=== PATIENT | female | born 1975 | race African-American/Black ===

== ENCOUNTER 2017-09-21 08:47 | Emergency (ER) | payer OTHER ==
[2017-09-21] MEDS ORDERED: ONDANSETRON 4 MG/2 ML VIAL IVP STA (09:12)
[2017-09-21] MEDS ORDERED: SODIUM CHLORIDE 0.9% 1,000 ML IV STA (09:12)
[2017-09-21 09:39] LABS: Basophils % (A) 0 %; CH 30.5; Eosinophils # (A) 0.1 k/uL (0-0.7); Eosinophils % (A) 1 %; HCT 33.8 % (34.0-46.0); HDW 2.54; HGB 10.9 gm/dL (11.4-16.0); Luc # (Auto) 0.23; Luc % (Auto) 2; Lymphocytes % (A) 11 %; MCH 29.9 pg (25.0-35.0); MCHC 32.3 g/dL (31.0-37.0); MCV 92.8 fL (80.0-100.0); Mean Platelet Volume 6.7; Monocytes # (A) 0.4 k/uL (0-1.0); Monocytes % (A) 5 %; Neutrophils # (A) 7.8 k/uL (1.3-7.7); Neutrophils % (A) 81 %; RBC 3.65 m/uL (3.80-5.40); RDW 12.7 % (11.5-15.5); WBC 9.5 k/uL (3.8-10.6); WBC (Perox) 9.72
[2017-09-21 09:40] LABS: Appearance,Urine Clear (Clear); Bacteria,Urine Moderate /hpf; Bilirubin,Urine Negative (Negative); Glucose,Urine (UA) Negative (Negative); Ketones,Urine 1+ (Negative); Leukocyte Esterase,Urine Negative (Negative); Mucus,Urine Rare /hpf; Nitrite,Urine Negative (Negative); Particle Count 3321; Protein,Urine Negative (Negative); RBC,Urine 7 /hpf (0-5); Squamous Epithelial Cell,Urine 1 /hpf (0-4); UA Billing (MACRO vs. MICRO) MICRO; Urobilinogen,Urine <2.0 mg/dL (<2.0); WBC,Urine 1 /hpf (0-5)
[2017-09-21 09:48] LABS: ALT 24 U/L (9-52); AST 18 U/L (14-36); Alkaline Phosphatase 45 U/L (38-126); Amylase 73 U/L (30-110); Anion Gap 10 mmol/L; Blood Urea Nitrogen 7 mg/dL (7-17); Calcium 9.6 mg/dL (8.4-10.2); Carbon Dioxide 21 mmol/L (22-30); Chloride 107 mmol/L (98-107); Glucose 85 mg/dL (74-99); Non-African American GFR(MDRD) >60 (>60 ml/min/1.73 sqM); Potassium 4.6 mmol/L (3.5-5.1); Sodium 138 mmol/L (137-145); Total Bilirubin 0.4 mg/dL (0.2-1.3); Total Protein 7.1 g/dL (6.3-8.2)
[2017-09-21 10:18] VITALS: BP 119/65; PULSE 77; RESP 20
[2017-09-21] MEDS ORDERED: METOCLOPRAMIDE 5 MG/ML 2 ML VIAL IVP STA (10:28)
--- NOTE | 2017-09-21 10:28 | ED ---
Back Pain HPI - General Chief Complaint: Back Pain/Injury Stated Complaint: Abd Pain/Back Pain 13 wks preg Time Seen by Provider: 09/21/17 08:57 Source: patient, RN notes reviewed Mode of arrival: ambulatory Limitations: no limitations - History of Present Illness Initial Comments: This a 42-year-old female presents emergency Department chief complaint of left- sided neck pain. Patient states she woke up with a couple days ago. Patient states she did have massage the day before. Patient states her still twist or bend her neck. Patient states it's on her left side that radiates towards her left shoulder. Denies any weakness to her extremities. Patient denies any paresthesias. Patient is left-hand dominant. Denies headache, fever, chills, chest pain or shortness breath. Patient states she is currently 14 weeks states that she does have nausea vomiting throughout and which is worse today. Patient states she is prescribed Zofran by her [employer] doesn't prove this. patient states that she has no vaginal bleeding or vaginal discharge. denies any abdominal pain or cramping. - Related Data Home Medications Medication Instructions Recorded Confirmed Multivitamins, Thera [Multivitamin 1 tab PO DAILY 09/21/17 09/21/17 (formulary)] Ondansetron [Zofran ODT] 4 mg PO Q4-6H PRN 09/21/17 09/21/17 Allergies Allergy/AdvReac Type Severity Reaction Status Date / Time latex Allergy Rash/Hives Verified 09/21/17 09:18 Penicillins Allergy Swelling Verified 09/21/17 09:18 Review of Systems ROS Statement: Those systems with pertinent positive or pertinent negative responses have been documented in the HPI. ROS Other: All systems not noted in ROS Statement are negative. Past Medical History Past Medical History: No Reported History Additional Past Medical History / Comment(s): MISSED AB, CURRENTLY SPOTTING AND SOME CRAMPING History of Any Multi-Drug Resistant Organisms: None Reported Past Surgical History: Section Additional Past Surgical History / Comment(s): D&C Past Anesthesia/Blood Transfusion Reactions: No Reported Reaction Past Psychological History: No Psychological Hx Reported Smoking Status: Never smoker Past Alcohol Use History: None Reported Past Drug Use History: None Reported - Past Family History Mother Family Medical History: No Reported History General Exam Limitations: no limitations General appearance: alert, in no apparent distress Head exam: Present: atraumatic, normocephalic, normal inspection Eye exam: Present: normal appearance, PERRL, EOMI. Absent: scleral icterus, conjunctival injection, periorbital swelling ENT exam: Present: normal exam, normal oropharynx, mucous membranes moist, TM's normal bilaterally, normal external ear exam Neck exam: Present: normal inspection, tenderness (Mild tenderness to the left trapezius), full ROM (Pain with range of motion). Absent: meningismus, lymphadenopathy Respiratory exam: Present: normal lung sounds bilaterally. Absent: respiratory distress, wheezes, rales, rhonchi, stridor Cardiovascular Exam: Present: regular rate, normal rhythm, normal heart sounds. Absent: systolic murmur, diastolic murmur, rubs, gallop, clicks GI/Abdominal exam: Present: soft, normal bowel sounds. Absent: distended, tenderness, guarding, rebound, rigid Extremities exam: Present: normal inspection, full ROM, normal capillary refill. Absent: tenderness, pedal edema, joint swelling, calf tenderness Neurological exam: Present: alert, oriented X3, CN II-XII intact Skin exam: Present: warm, dry, intact, normal color. Absent: rash Course Vital Signs 09/21/17 09/21/17 08:50 10:17 Temperature 98.5 F Pulse Rate 84 77 Respiratory 16 20 Rate Blood Pressure 136/79 119/65 O2 Sat by Pulse 100 100 Oximetry Medical Decision Making - Medical Decision Making 42-year-old female presented for neck pain. Patient has trapezius muscle spasms /torticollis. Patient is advised that she can try heat and ice to take Tylenol. Patient is limited on medications secondary . Patient was informed that she did have some blood in the urine states that this is an ongoing issue and she knows of this. Patient again states that she has no vaginal bleeding. Patient is advised to follow-up with her [employer] next one to 2 days. Return parameters were discussed. - Lab Data Result diagrams: 09/21/17 09:23 09/21/17 09:23 Lab Results 09/21/17 09/21/17 09/21/17 Range/Units 09:23 09:23 09:23 WBC 9.5 (3.8-10.6) k/uL RBC 3.65 L (3.80-5.40) m/uL Hgb 10.9 L (11.4-16.0) gm/dL Hct 33.8 L (34.0-46.0) % MCV 92.8 (80.0-100.0) fL MCH 29.9 (25.0-35.0) pg MCHC 32.3 (31.0-37.0) g/dL RDW 12.7 (11.5-15.5) % Plt Count 310 (150-450) k/uL Neutrophils % 81 % Lymphocytes % 11 % Monocytes % 5 % Eosinophils % 1 % Basophils % 0 % Neutrophils # 7.8 H (1.3-7.7) k/uL Lymphocytes # 1.0 (1.0-4.8) k/uL Monocytes # 0.4 (0-1.0) k/uL Eosinophils # 0.1 (0-0.7) k/uL Basophils # 0.0 (0-0.2) k/uL Sodium 138 (137-145) mmol/L Potassium 4.6 (3.5-5.1) mmol/L Chloride 107 (98-107) mmol/L Carbon Dioxide 21 L (22-30) mmol/L Anion Gap 10 mmol/L BUN 7 (7-17) mg/dL Creatinine 0.60 (0.52-1.04) mg/dL Est GFR (MDRD) Af Amer >60 (>60 ml/min/1.73 sqM) Est GFR (MDRD) Non-Af >60 (>60 ml/min/1.73 sqM) Glucose 85 (74-99) mg/dL Calcium 9.6 (8.4-10.2) mg/dL Total Bilirubin 0.4 (0.2-1.3) mg/dL AST 18 (14-36) U/L ALT 24 (9-52) U/L Alkaline Phosphatase 45 (38-126) U/L Total Protein 7.1 (6.3-8.2) g/dL Albumin 3.8 (3.5-5.0) g/dL Amylase 73 (30-110) U/L Lipase 56 (23-300) U/L Urine Color Light Yellow Urine Appearance Clear (Clear) Urine pH 7.0 (5.0-8.0) Ur Specific [place] 1.010 (1.001-1.035) Urine Protein Negative (Negative) Urine Glucose (UA) Negative (Negative) Urine Ketones 1+ H (Negative) Urine Blood Trace H (Negative) Urine Nitrite Negative (Negative) Urine Bilirubin Negative (Negative) Urine Urobilinogen <2.0 (<2.0) mg/dL Ur Leukocyte Esterase Negative (Negative) Urine RBC 7 H (0-5) /hpf Urine WBC 1 (0-5) /hpf Ur Squamous Epith Cells 1 (0-4) /hpf Urine Bacteria Moderate H (None) /hpf Urine Mucus Rare H (None) /hpf Disposition Clinical Impression: Trapezius muscle spasm, Nausea & vomiting Disposition: HOME SELF-CARE Condition: Stable Instructions: Spasmodic Torticollis (ED), Muscle Spasm (ED) Additional Instructions: Please return to the Emergency Department if symptoms worsen or any other concerns. Referrals: None,Stated [Primary Care Provider] - 1-2 days Time of Disposition: 10:28
[2017-09-21 10:37] VITALS: TEMP 98.2
== END 2017-09-21 10:37 | disposition home or self-care (01) ==
LOC: EC 08:47
DX: O99.89 Other specified diseases and conditions complicating pregnancy, childbirth and the puerperium (principal); M62.838 Other muscle spasm; O21.9 Vomiting of pregnancy, unspecified; Z98.890 Other specified postprocedural states; Z88.0 Allergy status to penicillin; Z91.040 Latex allergy status; Z3A.14 14 weeks gestation of pregnancy; Z79.899 Other long term (current) drug therapy
CPT/HCPCS: 36415; 80053; 82150; 83690; 85025; 81001; 99283; 96374; 96375; 96361; J2765; J2405

== ENCOUNTER 2017-11-25 14:51 | Outpatient (CLI) | payer OTHER ==
[2017-11-25 15:18] VITALS: BP 121/61; PULSE 98; RESP 18; TEMP 98.2
[2017-11-25 15:29] LABS: Appearance,Urine Clear (Clear); Bilirubin,Urine Negative (Negative); Blood,Urine Negative (Negative); Color,Urine Light Yellow; Glucose,Urine (UA) Negative (Negative); Ketones,Urine Negative (Negative); Leukocyte Esterase,Urine Negative (Negative); PH, Urine 6.5 (5.0-8.0); Protein,Urine Negative (Negative); Specific Gravity,Urine 1.006 (1.001-1.035); Urobilinogen,Urine <2.0 mg/dL (<2.0)
--- NOTE | 2018-01-04 08:24 | P.MSEPDOC ---
Presenting Problems - Arrival Data Date of Arrival on Unit: 11/25/17 Time of Arrival on Unit: 14:50 Mode of Transport: Ambulatory - Complaint OB-Reason for Admission/Chief Complaint: Pain Comment: abdomonimal pain at umbulicus, low pelvic pain, mid back pain x 3 days. transfer of care to [facility] with first appt 12/03. Medical History - Information : 4 Para: 1 Term: 1 Number of Living Children: 1 - Gestational Age Gestational Age by ROBER (wks/days): 22 Weeks and 3 Days - History Complications: Prior Review of Systems - Review of Systems Constitutional: No problems Breast: No problems ENT: No problems Cardiovascular: No problems Respiratory: No problems Gastrointestinal: No problems Genitourinary: No problems Musculoskeletal: No problems Neurological: No problems Skin: No problems Vital Signs - Temperature Temperature: 98.2 F Temperature Source: Oral - Pulse Right Sitting Brachial Pulse Rate: 98 Pulse Assessment Method: Automatic Cuff - Respirations Respiratory Rate: 18 Oxygen Delivery Method: Room Air - Blood Pressure Right Arm Sitting Blood Pressure: 121/61 Blood Pressure Mean: 81 Blood Pressure Source: Automatic Cuff Medical Screen Scoring (Pre) - Cervical Exam Dilation: 0 cm = 0 - Uterine Contractions Frequency: N/A Duration: N/A Intensity: N/A - Maternal Vital Signs Maternal Temperature: N/A Maternal Blood Pressure: N/A Signs of Preeclampsia: N/A Maternal Respirations: N/A - Pain Assessment Pain Location and Character: Abdomen Pain Scale Used: Numeric (1 - 10) Pain Intensity: 7 Pain Description: Cramping Pain Radiation Location: none Pain Frequency: Constant Pain Duration: 3 Pain Duration Units: Days Pain Behavior: None Exhibited Pain Aggravating Factors: Activity, ADL's - Maternal Trauma Maternal Trauma: N/A - Assessment Baseline FHR: 155 - Total Score Total Score (Pre): 0 - Level of Risk Level of Risk: N/A Medical Screen Scoring (Post) - Cervical Exam Dilation: 0 cm = 0 - Uterine Contractions Frequency: N/A Duration: N/A Intensity: N/A - Maternal Vital Signs Maternal Temperature: N/A Signs of Preeclampsia: N/A Maternal Respirations: N/A - Pain Assessment Pain Scale Used: Numeric (1 - 10) Pain Intensity: 5 - Maternal Trauma Maternal Trauma: N/A - Total Score Total Score (Post): 0 - Post Treatment Level of Risk Post Treatment Level of Risk: Low (0-5) Physician Notification (Post) - Physician Notified Physician Notified Date: 11/25/17 Physician Notified Time: 15:40 Physician/Practitioner Notified:: Dr Landers Spoke With: Dr Landers New Order Received: Yes - Notification Comment Comment: Discharge home. increase fluids, rest, ok to work. Pt to call office tomorrow (Sunday) for a follow up appt with Dr Caruso this week. Disposition - Disposition OB Disposition: Discharge to home, Written follow up instructions reviewed Discharge Date: 11/25/17 Discharge Time: 15:52 I agree with the RN Medical Screening Exam: Yes Risk & Benefit of care provided described in d/c instruction: Yes Diagnosis: LOW BACK PAIN
== END 2017-11-25 15:50 | disposition home or self-care (01) ==
LOC: FBPOP 14:51
PROVIDERS: ATTEND Obstetrics & Gynecology
DX: O26.892 Other specified pregnancy related conditions, second trimester (principal); R10.9 Unspecified abdominal pain; M54.6 Pain in thoracic spine; Z3A.22 22 weeks gestation of pregnancy
CPT/HCPCS: 81003; 99213

== ENCOUNTER 2017-12-06 16:51 | Emergency (ER) | payer OTHER ==
[2017-12-06 17:07] VITALS: RESP 16
[2017-12-06] MEDS ORDERED: SODIUM CHLORIDE 0.9% 1,000 ML IV STA (17:24)
[2017-12-06] MEDS ORDERED: METOCLOPRAMIDE 5 MG/ML 2 ML VIAL IVP STA (17:24)
[2017-12-06] MEDS ORDERED: diphenhydrAMINE 50 MG/ML 1 ML VIAL IVP STA (17:24)
--- NOTE | 2017-12-06 17:26 | ED ---
General Adult HPI - General Chief complaint: Nausea/Vomiting/Diarrhea Stated complaint: Vomiting/Headache Time Seen by Provider: 12/06/17 17:07 Source: patient, RN notes reviewed Mode of arrival: wheelchair Limitations: no limitations - History of Present Illness Initial comments: Patient is a G2, P1 42-year-old female who presents emergency room today with a chief complaint of symptoms of nausea vomiting diarrhea that started yesterday. 24 weeks by ultrasound. Patient states that she's had a difficult time keeping down fluids. She states that she came here to the emergency room on recommendation from OB. Patient denies any specific abdominal pain. Doesn' t some cramping that comes and goes. Denies any signs blood in the emesis or stool. Patient denies any other complaints or symptoms. Patient denies any recent fever, chills, shortness of breath, chest pain, back pain, numbness or tingling, dysuria or hematuria, constipation, headaches or visual changes, or any other complaints. - Related Data Home Medications Medication Instructions Recorded Confirmed Magnesium 200 mg PO DAILY 12/06/17 12/06/17 Ondansetron Odt [Zofran Odt] 4 mg PO Q12HR PRN 12/06/17 12/06/17 Pnv No.95/Ferrous Fum/Folic AC 1 tab PO DAILY 12/06/17 12/06/17 [ Multivitamin Tablet] Allergies Allergy/AdvReac Type Severity Reaction Status Date / Time latex Allergy Rash/Hives Verified 12/06/17 17:19 Penicillins Allergy Swelling Verified 12/06/17 17:19 Review of Systems ROS Statement: Those systems with pertinent positive or pertinent negative responses have been documented in the HPI. ROS Other: All systems not noted in ROS Statement are negative. Past Medical History Past Medical History: No Reported History Additional Past Medical History / Comment(s): MISSED AB, CURRENTLY SPOTTING AND SOME CRAMPING History of Any Multi-Drug Resistant Organisms: None Reported Past Surgical History: Section, Hernia Repair Additional Past Surgical History / Comment(s): D&C Past Anesthesia/Blood Transfusion Reactions: No Reported Reaction Past Psychological History: No Psychological Hx Reported Smoking Status: Never smoker Past Alcohol Use History: None Reported Past Drug Use History: None Reported - Past Family History Mother Family Medical History: No Reported History General Exam - General Exam Comments Initial Comments: General: The patient is awake and alert, in no distress, and does not appear acutely ill. Eye: Pupils are equal, round and reactive to light, extra-ocular movements are intact. No nystagmus. There is normal conjunctiva bilaterally. No signs of icterus. Ears, nose, mouth and throat: There are moist mucous membranes and no oral lesions. Neck: The neck is supple, there is no tenderness or JVD. Cardiovascular: There is a regular rate and rhythm. No murmur, rub or gallop is appreciated. Respiratory: Lungs are clear to auscultation, respirations are non-labored, breath sounds are equal. No wheezes, stridor, rales, or rhonchi. Gastrointestinal: Soft, non-distended, non-tender abdomen without masses or organomegaly noted. There is no rebound or guarding present. No CVA tenderness. Bowel sounds are unremarkable. Musculoskeletal: Normal ROM, no tenderness. Strength 5/5. Sensation intact. Pulses equal bilaterally 2+. Neurological: A&O x 3. CN II-XII intact, There are no obvious motor or sensory deficits. Coordination appears grossly intact. Speech is normal. Skin: Skin is warm and dry and no rashes or lesions are noted. Psychiatric: Cooperative, appropriate mood & affect, normal judgment. Limitations: no limitations Course Vital Signs 12/06/17 17:04 Temperature 99 F Pulse Rate 98 Respiratory 16 Rate Blood Pressure 121/56 O2 Sat by Pulse 98 Oximetry Medical Decision Making - Medical Decision Making Patient reexamined at this time shows no signs of stress is resting comfortably. Denies any nausea or vomiting at this time. Feeling much better after IV fluids. Patient's labs been reviewed. Hemoglobin 10.8 which is consistent with previous lab draws. At this time patient will be discharged and sent to mother-baby for further evaluation. - Lab Data Result diagrams: 12/06/17 17:40 12/06/17 17:40 Lab Results 12/06/17 12/06/17 12/06/17 Range/Units 17:40 17:40 17:45 WBC 7.7 (3.8-10.6) k/uL RBC 3.44 L (3.80-5.40) m/uL Hgb 10.8 L (11.4-16.0) gm/dL Hct 34.1 (34.0-46.0) % MCV 99.0 (80.0-100.0) fL MCH 31.4 (25.0-35.0) pg MCHC 31.7 (31.0-37.0) g/dL RDW 13.5 (11.5-15.5) % Plt Count 265 (150-450) k/uL Neutrophils % 72 % Lymphocytes % 16 % Monocytes % 6 % Eosinophils % 1 % Basophils % 0 % Neutrophils # 5.6 (1.3-7.7) k/uL Lymphocytes # 1.2 (1.0-4.8) k/uL Monocytes # 0.5 (0-1.0) k/uL Eosinophils # 0.1 (0-0.7) k/uL Basophils # 0.0 (0-0.2) k/uL Hypochromasia Slight Sodium 137 (137-145) mmol/L Potassium 3.9 (3.5-5.1) mmol/L Chloride 102 (98-107) mmol/L Carbon Dioxide 23 (22-30) mmol/L Anion Gap 12 mmol/L BUN 6 L (7-17) mg/dL Creatinine 0.60 (0.52-1.04) mg/dL Est GFR (MDRD) Af Amer >60 (>60 ml/min/1.73 sqM) Est GFR (MDRD) Non-Af >60 (>60 ml/min/1.73 sqM) Glucose 82 (74-99) mg/dL Calcium 9.5 (8.4-10.2) mg/dL Total Bilirubin 0.5 (0.2-1.3) mg/dL AST 22 (14-36) U/L ALT 17 (9-52) U/L Alkaline Phosphatase 55 (38-126) U/L Total Protein 7.0 (6.3-8.2) g/dL Albumin 3.8 (3.5-5.0) g/dL Lipase 88 (23-300) U/L Urine Color Yellow Urine Appearance Cloudy H (Clear) Urine pH 5.5 (5.0-8.0) Ur Specific [place] 1.020 (1.001-1.035) Urine Protein Trace H (Negative) Urine Glucose (UA) Negative (Negative) Urine Ketones Trace H (Negative) Urine Blood Negative (Negative) Urine Nitrite Negative (Negative) Urine Bilirubin Negative (Negative) Urine Urobilinogen <2.0 (<2.0) mg/dL Ur Leukocyte Esterase Negative (Negative) Urine RBC 1 (0-5) /hpf Urine WBC 2 (0-5) /hpf Ur Squamous Epith Cells 22 H (0-4) /hpf Urine Bacteria Moderate H (None) /hpf Urine Mucus Moderate H (None) /hpf Disposition Clinical Impression: , Nausea vomiting and diarrhea Disposition: HOME SELF-CARE Condition: Good Instructions: Acute Nausea and Vomiting (ED) Additional Instructions: Please follow-up with family doctor in the next 2 days of symptoms have not improved. Please return to emergency room if the symptoms increase or worsen or for any other concerns. Referrals: None,Stated [Primary Care Provider] - 1-2 days Time of Disposition: 18:44
[2017-12-06 17:52] LABS: Basophils % (A) 0 %; Eosinophils # (A) 0.1 k/uL (0-0.7); Eosinophils % (A) 1 %; HCT 34.1 % (34.0-46.0); HGB 10.8 gm/dL (11.4-16.0); Hypochromasia Slight; Lymphocytes # (A) 1.2 k/uL (1.0-4.8); Lymphocytes % (A) 16 %; MCH 31.4 pg (25.0-35.0); MCHC 31.7 g/dL (31.0-37.0); Mean Platelet Volume 6.6; Monocytes # (A) 0.5 k/uL (0-1.0); Monocytes % (A) 6 %; Neutrophils # (A) 5.6 k/uL (1.3-7.7); Neutrophils % (A) 72 %; Platelet Count 265 k/uL (150-450); RBC 3.44 m/uL (3.80-5.40); RDW 13.5 % (11.5-15.5); WBC 7.7 k/uL (3.8-10.6)
[2017-12-06 18:01] LABS: Appearance,Urine Cloudy (Clear); Bacteria,Urine Moderate /hpf; Bilirubin,Urine Negative (Negative); Blood,Urine Negative (Negative); Color,Urine Yellow; Glucose,Urine (UA) Negative (Negative); Ketones,Urine Trace (Negative); Leukocyte Esterase,Urine Negative (Negative); Mucus,Urine Moderate /hpf; Nitrite,Urine Negative (Negative); PH, Urine 5.5 (5.0-8.0); Protein,Urine Trace (Negative); RBC,Urine 1 /hpf (0-5); Squamous Epithelial Cell,Urine 22 /hpf (0-4); Urobilinogen,Urine <2.0 mg/dL (<2.0); WBC,Urine 2 /hpf (0-5)
[2017-12-06 18:07] LABS: ALT 17 U/L (9-52); AST 22 U/L (14-36); Albumin 3.8 g/dL (3.5-5.0); Alkaline Phosphatase 55 U/L (38-126); Anion Gap 12 mmol/L; Blood Urea Nitrogen 6 mg/dL (7-17); Calcium 9.5 mg/dL (8.4-10.2); Carbon Dioxide 23 mmol/L (22-30); Chloride 102 mmol/L (98-107); Glucose 82 mg/dL (74-99); Lipase 88 U/L (23-300); Potassium 3.9 mmol/L (3.5-5.1); Sodium 137 mmol/L (137-145); Total Bilirubin 0.5 mg/dL (0.2-1.3)
[2017-12-06 18:51] VITALS: BP 101/56; PULSE 87; TEMP 98.8
== END 2017-12-06 18:51 | disposition home or self-care (01) ==
LOC: EC 16:51
DX: O21.2 Late vomiting of pregnancy (principal); O99.89 Other specified diseases and conditions complicating pregnancy, childbirth and the puerperium; R19.7 Diarrhea, unspecified; Z98.890 Other specified postprocedural states; Z91.040 Latex allergy status; Z88.0 Allergy status to penicillin; Z3A.24 24 weeks gestation of pregnancy; Z79.899 Other long term (current) drug therapy
CPT/HCPCS: 99284; 96374; 96375; 96361; 36415; 80053; 83690; 85025; 81001; 87086; J1200; J2765

== ENCOUNTER 2017-12-06 19:05 | Outpatient (CLI) | payer OTHER ==
[2017-12-06 20:06] VITALS: BP 108/62; PULSE 81; RESP 18; TEMP 97.7
--- NOTE | 2017-12-21 10:51 | P.MSEPDOC ---
Presenting Problems - Arrival Data Date of Arrival on Unit: 12/06/17 Time of Arrival on Unit: 19:00 Mode of Transport: Wheelchair - Complaint OB-Reason for Admission/Chief Complaint: Acute Nausea/Vomiting Comment: n/v and diarreha since yesterday afternoon, chills and achy Medical History - Information : 2 Para: 1 Term: 1 : 0 Abortions: Spontaneous or Elective: 0 Number of Living Children: 1 - Gestational Age Gestational Age by ROBER (wks/days): 24 Weeks and 0 Days - History Complications: Prior Review of Systems - Review of Systems Constitutional: No problems Breast: No problems ENT: No problems Cardiovascular: No problems Respiratory: No problems Gastrointestinal: Diarrhea Genitourinary: No problems Musculoskeletal: No problems Neurological: No problems Skin: No problems Vital Signs - Temperature Temperature: 97.7 F Temperature Source: Oral - Pulse Right Brachial Pulse Rate: 81 Pulse Assessment Method: Auscultation - Respirations Respiratory Rate: 18 Oxygen Delivery Method: Room Air - Blood Pressure Right Arm Blood Pressure: 108/62 Blood Pressure Mean: 77 Blood Pressure Source: Automatic Cuff Medical Screen Scoring (Pre) - Cervical Exam Dilation: Exam Deferred Effacement: Exam Deferred - Uterine Contractions Frequency: > 5 minutes apart = 1 Duration: N/A Intensity: N/A - Maternal Vital Signs Maternal Temperature: N/A Maternal Blood Pressure: N/A Signs of Preeclampsia: N/A Maternal Respirations: N/A - Pain Assessment Pain Location and Character: Abdomen Pain Scale Used: Numeric (1 - 10) Pain Intensity: 2 Pain Description: *Acute, Cramping Pain Behavior: Vocalization - Maternal Trauma Maternal Trauma: N/A - Assessment Baseline FHR: 140 Heart Rate - NICHD Category: Category I (Normal) = 0 Position: N/A, Non-vertex & not laboring = 3 Station: N/A - Total Score Total Score (Pre): 4 - Level of Risk Level of Risk: Low (0-5) Physician Notification (Pre) - Physician Notified Physician Notified Date: 12/06/17 Physician Notified Time: 19:40 Physician/Practitioner Notifed:: Dr. Caruso Spoke With: Dr. Caruso New Order Received: Yes - Notification Comment Comment: order to obtain flu swab Medical Screen Scoring (Post) - Cervical Exam Dilation: Exam Deferred Effacement: Exam Deferred - Uterine Contractions Frequency: > 5 minutes apart = 1 Duration: N/A Intensity: N/A - Maternal Vital Signs Maternal Temperature: N/A Maternal Blood Pressure: N/A Signs of Preeclampsia: N/A Maternal Respirations: N/A - Pain Assessment Pain Scale Used: Numeric (1 - 10) Pain Intensity: 2 Pain Description: *Acute, Cramping Pain Frequency: Intermittent Pain Behavior: Vocalization - Maternal Trauma Maternal Trauma: N/A - Assessment Heart Rate: 140 Heart Rate - NICHD Category: Category I (Normal) = 0 Position: N/A Station: N/A - Total Score Total Score (Post): 1 - Post Treatment Level of Risk Post Treatment Level of Risk: Low (0-5) Physician Notification (Post) - Physician Notified Physician Notified Date: 12/06/17 Physician Notified Time: 20:42 Physician/Practitioner Notified:: Dr. Caruso Spoke With: Dr. Caruso New Order Received: Yes - Notification Comment Comment: orders to discharge pt home Disposition - Disposition OB Disposition: Triage, Discharge to home, Written follow up instructions reviewed Discharge Date: 12/06/17 Discharge Time: 20:51 I agree with the RN Medical Screening Exam: Yes Risk & Benefit of care provided described in d/c instruction: Yes Diagnosis: NONINFECTIVE GASTROENTERITIS AND COLITIS, UNSPECIFIED
== END 2017-12-06 21:00 | disposition home or self-care (01) ==
LOC: FBPOP 19:05
PROVIDERS: ATTEND Obstetrics & Gynecology
DX: O99.612 Diseases of the digestive system complicating pregnancy, second trimester (principal); O99.89 Other specified diseases and conditions complicating pregnancy, childbirth and the puerperium; R11.2 Nausea with vomiting, unspecified; Z3A.24 24 weeks gestation of pregnancy
CPT/HCPCS: 87502; 99214

== ENCOUNTER → 2017-12-06 | Outpatient (CLI) | payer OTHER | END | disposition home or self-care (01) | LOC: CANPRECLI → FBPOP 16:40 | PROVIDERS: ATTEND Obstetrics & Gynecology | DX: Z53.9 Procedure and treatment not carried out, unspecified reason (principal) ==

== ENCOUNTER 2018-01-04 15:46 | Outpatient (CLI) | payer OTHER ==
[2018-01-04 16:08] VITALS: BP 120/69; RESP 16; TEMP 98.2
[2018-01-04 17:38] LABS: Appearance,Urine Clear (Clear); Bilirubin,Urine Negative (Negative); Blood,Urine Negative (Negative); Color,Urine Yellow; Glucose,Urine (UA) Negative (Negative); Ketones,Urine Negative (Negative); Leukocyte Esterase,Urine Negative (Negative); Nitrite,Urine Negative (Negative); Protein,Urine Trace (Negative); Specific Gravity,Urine 1.014 (1.001-1.035); Urobilinogen,Urine <2.0 mg/dL (<2.0)
[2018-01-04] MEDS ORDERED: LACTATED RINGERS 1,000 ML IV ONE (18:15)
[2018-01-04 18:43] VITALS: PULSE 95
--- NOTE | 2018-01-22 11:11 | P.MSEPDOC ---
Presenting Problems - Arrival Data Date of Arrival on Unit: 01/04/18 Time of Arrival on Unit: 15:46 Mode of Transport: Ambulatory - Complaint OB-Reason for Admission/Chief Complaint: Observation/Evaluation Medical History - Information : 2 Para: 1 Term: 1 : 0 Abortions: Spontaneous or Elective: 0 Number of Living Children: 1 - Gestational Age Gestational Age by ROBER (wks/days): 28 Weeks and 1 Days Review of Systems - Review of Systems Constitutional: No problems Breast: No problems ENT: No problems Cardiovascular: No problems Respiratory: No problems Gastrointestinal: No problems Genitourinary: No problems Musculoskeletal: No problems Neurological: No problems Skin: No problems Vital Signs - Temperature Temperature: 98.2 F Temperature Source: Temporal Artery Scan - Pulse Right Brachial Pulse Rate: 95 Pulse Assessment Method: Automatic Cuff - Respirations Respiratory Rate: 16 Oxygen Delivery Method: Room Air - Blood Pressure Right Arm Blood Pressure: 120/69 Blood Pressure Mean: 86 Blood Pressure Source: Automatic Cuff Medical Screen Scoring (Pre) - Cervical Exam Dilation: 0 cm = 0 Membranes: Intact - Uterine Contractions Frequency: < 36 weeks = 6 Duration: > 40 seconds = 2 - Maternal Vital Signs Maternal Temperature: N/A Maternal Blood Pressure: N/A Signs of Preeclampsia: N/A Maternal Respirations: N/A - Pain Assessment Pain Location and Character: Abdomen Pain Scale Used: Numeric (1 - 10) Pain Intensity: 6 Pain Description: *Acute Pain Frequency: Intermittent Pain Duration Units: Days Pain Behavior: Facial Grimacing Pain Aggravating Factors: Contractions - Maternal Trauma Maternal Trauma: N/A - Assessment Baseline FHR: 145 Heart Rate - NICHD Category: Category I (Normal) = 0 NST: Reactive Position: N/A Station: N/A - Total Score Total Score (Pre): 8 - Level of Risk Level of Risk: Medium (6-9) Physician Notification (Pre) - Physician Notified Physician Notified Date: 01/04/18 Physician Notified Time: 18:06 Physician/Practitioner Notifed:: Ashley New Order Received: Yes (IV fluids) - Notification Comment Comment: FFN negative, UA wnl Medical Screen Scoring (Post) - Cervical Exam Dilation: 0 cm = 0 Membranes: Intact - Uterine Contractions Frequency: > 5 minutes apart = 1 Duration: > 40 seconds = 2 - Maternal Vital Signs Signs of Preeclampsia: N/A Maternal Respirations: N/A - Pain Assessment Pain Location and Character: Abdomen Pain Scale Used: Numeric (1 - 10) Pain Intensity: 6 Pain Management Goal: 0 Pain Description: Tightness Pain Radiation Location: n/a Pain Frequency: Intermittent Pain Duration: 4 Pain Duration Units: Hours Pain Behavior: Vocalization Effects of Pain: none Pain Aggravating Factors: Contractions Pharmacological Interventions: Discuss Pain Med Options Non-Pharmacological Interventions: Relaxation Technique - Maternal Trauma Maternal Trauma: N/A - Assessment Heart Rate: 155 Heart Rate - NICHD Category: Category I (Normal) = 0 NST: Reactive Position: N/A Station: N/A - Total Score Total Score (Post): 3 - Post Treatment Level of Risk Post Treatment Level of Risk: Low (0-5) Physician Notification (Post) - Physician Notified Physician Notified Date: 01/04/18 Physician Notified Time: 18:55 Physician/Practitioner Notified:: Norma Spoke With: Ashley New Order Received: Yes (see comments) - Notification Comment Comment: Verbal orders taken by Jayashree Rasheed from Dr. Ramirez-to re-check cervix at 1999, if no cervical change, discharge patient home and have her follow up Sunday in office. Disposition - Disposition OB Disposition: Discharge to home Discharge Date: 01/04/18 Discharge Time: 20:05 I agree with the RN Medical Screening Exam: Yes Risk & Benefit of care provided described in d/c instruction: Yes Diagnosis: FALSE LABOR BEFORE 37 COMPLETED WEEKS OF GEST, THIRD TRI
== END 2018-01-04 20:05 | disposition home or self-care (01) ==
LOC: FBPOP 15:46
PROVIDERS: ATTEND Obstetrics & Gynecology
DX: O47.03 False labor before 37 completed weeks of gestation, third trimester (principal); Z3A.28 28 weeks gestation of pregnancy
CPT/HCPCS: 59025; 81003; 82731; 96360; 96361; 96365; 99214

== ENCOUNTER 2018-01-21 17:25 | Outpatient (CLI) | payer OTHER ==
[2018-01-21] MEDS ORDERED: LACTATED RINGERS 1,000 ML IV SCH (18:45)
[2018-01-21] MEDS ORDERED: BETAMET ACET-BETAMETH SOD PHOS 6 MG/ML VIAL IM SCH (20:30)
[2018-01-21 23:58] VITALS: BP 113/63; PULSE 96; RESP 16; TEMP 98.4
--- NOTE | 2018-01-25 08:16 | P.MSEPDOC ---
Presenting Problems - Arrival Data Date of Arrival on Unit: 01/21/18 Time of Arrival on Unit: 17:25 Mode of Transport: Ambulatory - Complaint OB-Reason for Admission/Chief Complaint: Possible Onset of Labor Comment: pt states has been feeling really bad all weekend vomiting and loose stools all. day Sunday with contractions and pressure. Sunday all day just continued pressure and. contractions. not able to sleep more than a couple hours at a time. pressure and. contractions have continued all day. didnt really time. Medical History - Information : 4 Para: 1 Term: 1 : 0 Number of Living Children: 1 - Gestational Age Gestational Age by ROBER (wks/days): 30 Weeks and 4 Days - History Complications: Prior Review of Systems - Review of Systems Constitutional: No problems Breast: No problems ENT: No problems Cardiovascular: No problems Respiratory: No problems Gastrointestinal: No problems Genitourinary: No problems Musculoskeletal: No problems Neurological: No problems Skin: No problems Vital Signs - Temperature Temperature: 98.4 F Temperature Source: Oral - Pulse Right Pulse Rate: 96 Pulse Assessment Method: Automatic Cuff - Respirations Respiratory Rate: 16 Oxygen Delivery Method: Room Air O2 Sat by Pulse Oximetry: 97 - Blood Pressure Right Arm Blood Pressure: 113/63 Blood Pressure Mean: 79 Blood Pressure Source: Automatic Cuff Medical Screen Scoring (Pre) - Cervical Exam Dilation: 0 cm = 0 - Uterine Contractions Frequency: < 36 weeks = 6, Scheduled / = 6 Duration: > 40 seconds = 2 Intensity: N/A - Maternal Vital Signs Maternal Temperature: N/A Maternal Blood Pressure: N/A Signs of Preeclampsia: N/A - Pain Assessment Pain Location and Character: Abdomen Pain Scale Used: Numeric (1 - 10) Pain Intensity: 3 Pain Management Goal: 3 Pain Description: Cramping Pain Behavior: None Exhibited - Maternal Trauma Maternal Trauma: N/A - Assessment Baseline FHR: 130 Heart Rate - NICHD Category: Category I (Normal) = 0 NST: Reactive Position: N/A - Total Score Total Score (Pre): 14 - Level of Risk Level of Risk: High (10+) Physician Notification (Pre) - Physician Notified Physician Notified Date: 01/21/18 Physician Notified Time: 18:30 Physician/Practitioner Notifed:: Dr Landers New Order Received: Yes - Notification Comment Comment: Dr Landers in department in C/S immediatly after pt arrival. notified will need to discuss pt proir to leaving. Updated as soon as out of C/S room. dr landers updated on pt including history, current assessment, reason for admit, . regular contractions and vag exam. ffn specimen sent. orders received to start iv for. hydration Physician Notification (Post) - Physician Notified Physician Notified Date: 01/21/18 Physician Notified Time: 19:17 Physician/Practitioner Notified:: Dr Landers New Order Received: Yes - Notification Comment Comment: 1916 dr Landers in department. in to assess pt. states contractions are lessening. continue iv bolus until 1000 infused then pt is ok to discharge. 2007 dr Landers called back. Requests betamethasone (given) pt to discharge and follow up at office tomorrow to be seen by Dr Caruso and to be sent back over for second betamethasone. Pt comfortable with leaving, states contractions less frequent and less painful after iv. Disposition - Disposition OB Disposition: Discharge to home, Written follow up instructions reviewed Discharge Date: 01/21/18 Discharge Time: 21:10 I agree with the RN Medical Screening Exam: Yes Risk & Benefit of care provided described in d/c instruction: Yes Diagnosis: NONINFECTIVE GASTROENTERITIS AND COLITIS, UNSPECIFIED
== END 2018-01-21 20:10 | disposition home or self-care (01) ==
LOC: FBPOP 17:25
PROVIDERS: ATTEND Obstetrics & Gynecology
DX: O99.613 Diseases of the digestive system complicating pregnancy, third trimester (principal); K52.9 Noninfective gastroenteritis and colitis, unspecified; Z3A.30 30 weeks gestation of pregnancy
CPT/HCPCS: 59025; 99214; 96360; 96361; 96372; 82731; J0702

== ENCOUNTER 2018-02-22 18:42 | Outpatient (CLI) | payer OTHER ==
--- NOTE | 2018-03-07 08:36 | P.MSEPDOC ---
Presenting Problems - Arrival Data Date of Arrival on Unit: 02/22/18 Time of Arrival on Unit: 18:50 Mode of Transport: Ambulatory - Complaint OB-Reason for Admission/Chief Complaint: Possible Onset of Labor, Pain Medical History - Information : 2 Para: 1 Term: 1 : 0 Abortions: Spontaneous or Elective: 0 Number of Living Children: 1 - Gestational Age Gestational Age by ROBER (wks/days): 35 Weeks and 1 Days - History Complications: Prior Review of Systems - Review of Systems Constitutional: No problems Breast: No problems ENT: No problems Cardiovascular: No problems Respiratory: No problems Gastrointestinal: No problems Genitourinary: No problems Musculoskeletal: No problems Neurological: No problems Skin: No problems Medical Screen Scoring (Pre) - Cervical Exam Dilation: 0 cm = 0 Effacement: Exam Deferred Membranes: Intact - Uterine Contractions Frequency: > or = 36 weeks =2 Duration: > 40 seconds = 2 - Maternal Vital Signs Maternal Temperature: N/A Maternal Blood Pressure: N/A Signs of Preeclampsia: N/A Maternal Respirations: N/A - Assessment Heart Rate - NICHD Category: Category I (Normal) = 0 NST: Reactive - Total Score Total Score (Pre): 4 - Level of Risk Level of Risk: Low (0-5) Physician Notification (Pre) - Physician Notified Physician Notified Date: 02/22/18 Physician/Practitioner Notifed:: Dr Puri New Order Received: Yes Disposition - Disposition OB Disposition: Discharge to home, Written follow up instructions reviewed Discharge Date: 02/22/18 Discharge Time: 20:10 I agree with the RN Medical Screening Exam: Yes Risk & Benefit of care provided described in d/c instruction: Yes Diagnosis: FALSE LABOR BEFORE 37 COMPLETED WEEKS OF GEST, THIRD TRI
== END 2018-02-22 20:10 | disposition home or self-care (01) ==
LOC: FBPOP 18:42
PROVIDERS: ATTEND Obstetrics & Gynecology Obstetrics
DX: O47.03 False labor before 37 completed weeks of gestation, third trimester (principal); Z3A.35 35 weeks gestation of pregnancy
CPT/HCPCS: 59025; 99213

== ENCOUNTER 2018-03-11 00:08 | Outpatient (CLI) | payer OTHER ==
[2018-03-11 00:58] VITALS: BP 116/62; PULSE 98; RESP 16; TEMP 98.2
--- NOTE | 2018-03-26 11:10 | P.MSEPDOC ---
Presenting Problems - Arrival Data Date of Arrival on Unit: 03/11/18 Time of Arrival on Unit: 00:08 Mode of Transport: Wheelchair - Complaint OB-Reason for Admission/Chief Complaint: Possible Onset of Labor, Acute Nausea/ Vomiting, Pain Comment: abd pain Medical History - Information : 2 Para: 1 Term: 1 : 0 Abortions: Spontaneous or Elective: 0 Number of Living Children: 1 - Gestational Age Gestational Age by ROBER (wks/days): 37 Weeks and 4 Days - History Complications: Prior Review of Systems - Review of Systems Constitutional: No problems Breast: No problems ENT: No problems Cardiovascular: No problems Respiratory: No problems Genitourinary: No problems Musculoskeletal: No problems Neurological: No problems Skin: No problems Comment: n/v Vital Signs - Temperature Temperature: 98.2 F Temperature Source: Temporal Artery Scan - Pulse Right Pulse Rate: 98 Pulse Assessment Method: Pulse Oximetry - Respirations Respiratory Rate: 16 O2 Sat by Pulse Oximetry: 97 - Blood Pressure Right Arm Blood Pressure: 116/62 Blood Pressure Mean: 80 Blood Pressure Source: Automatic Cuff Medical Screen Scoring (Pre) - Cervical Exam Dilation: 0 cm = 0 Membranes: Intact - Uterine Contractions Frequency: > 5 minutes apart = 1 Duration: > 40 seconds = 2 Intensity: N/A - Maternal Vital Signs Maternal Temperature: N/A Maternal Blood Pressure: N/A Signs of Preeclampsia: N/A Maternal Respirations: N/A - Pain Assessment Pain Location and Character: Abdomen Pain Scale Used: Numeric (1 - 10) Pain Intensity: 6 Pain Management Goal: 4 Pain Description: *Acute, Sore Pain Duration: 6 Pain Duration Units: Months Pain Behavior: Vocalization Pain Aggravating Factors: None Pharmacological Interventions: PRN Medication Non-Pharmacological Interventions: Darkened Room, Distraction, Emotional/ Spiritual Support, Heat, Position/Reposition - Total Score Total Score (Pre): 3 Physician Notification (Pre) - Physician Notified Physician Notified Date: 03/11/18 Physician Notified Time: 00:45 Physician/Practitioner Notifed:: Dr Caruso - Notification Comment Comment: reported on pts c/o, fhts, cntrx pattern, vag exam. Dr Caruso in dept, reviewed strip. reported on right sided abd pain but is noted to be soft with large amount of fetus on that side. reported on no n/v since being here. orders to obtain reactive NST and d/c home with instructions. Disposition - Disposition OB Disposition: Discharge to home Discharge Date: 03/11/18 Discharge Time: 01:05 I agree with the RN Medical Screening Exam: Yes Risk & Benefit of care provided described in d/c instruction: Yes Diagnosis: FALSE LABOR AT OR AFTER 37 COMPLETED WEEKS OF GESTATION
== END 2018-03-11 01:05 | disposition home or self-care (01) ==
LOC: FBPOP 00:08
PROVIDERS: ATTEND Obstetrics & Gynecology
DX: O47.1 False labor at or after 37 completed weeks of gestation (principal); Z3A.37 37 weeks gestation of pregnancy
CPT/HCPCS: 59025; 99213

== ENCOUNTER 2018-03-21 10:05 | Inpatient (IN) | payer OTHER ==
[2018-03-19 16:11] VITALS: BMI 36.6
[2018-03-21] MEDS ORDERED: CITRIC ACID-SODIUM CITRATE 15 ML CUP PO ONE (10:14)
[2018-03-21] MEDS: LACTATED RINGERS 1,000 ML IV SCH ×3 (11:06→22:07)
[2018-03-21 11:13] LABS: Basophils % (A) 0 %; Eosinophils # (A) 0.1 k/uL (0-0.7); Eosinophils % (A) 1 %; HCT 31.3 % (34.0-46.0); Hypochromasia Slight; Lymphocytes # (A) 1.2 k/uL (1.0-4.8); Lymphocytes % (A) 16 %; MCH 29.7 pg (25.0-35.0); MCHC 31.9 g/dL (31.0-37.0); Mean Platelet Volume 6.8; Monocytes # (A) 0.5 k/uL (0-1.0); Monocytes % (A) 6 %; Neutrophils # (A) 5.5 k/uL (1.3-7.7); Neutrophils % (A) 73 %; Platelet Count 300 k/uL (150-450); RBC 3.36 m/uL (3.80-5.40); RDW 14.2 % (11.5-15.5); WBC 7.5 k/uL (3.8-10.6)
[2018-03-21] MEDS ORDERED: PHENYLEPHRINE-0.9% NACL SYG 1 MG/10 ML SYRINGE ONE (12:01)
[2018-03-21] MEDS ORDERED: SODIUM CHLORIDE 0.9% 100 ML BAG ONE (12:01)
[2018-03-21] MEDS ORDERED: ePHEDrine SULFATE/0.9% NACL/PF 50 MG/5 ML SYRINGE IV ONE (12:01)
[2018-03-21] MEDS ORDERED: ONDANSETRON 4 MG/2 ML VIAL ONE (12:01)
[2018-03-21] MEDS ORDERED: OXYTOCIN 10 UNIT/ML 1 ML VIAL ONE (12:01)
[2018-03-21] MEDS ORDERED: LACTATED RINGERS 1,000 ML BAG IV ONE (12:01)
[2018-03-21] MEDS ORDERED: NALBUPHINE 10 MG/ML AMPUL ONE (12:01)
[2018-03-21] MEDS ORDERED: MORPHINE SULFATE (PF) 0.3 MG/0.3 ML SYR ONE (12:01)
[2018-03-21] MEDS ORDERED: CLINDAMYCIN 150 MG/ML 4 ML VIAL ONE (12:01)
[2018-03-21] MEDS ORDERED: diphenhydrAMINE 50 MG CAP PO PRN (13:01)
[2018-03-21] MEDS ORDERED: ACETAMINOPHEN TAB 325 MG TAB PO PRN (13:01)
[2018-03-21] MEDS ORDERED: HYDROcodone/APAP 5-325MG 1 EACH TAB PO PRN (13:01)
[2018-03-21] MEDS ORDERED: ZOLPIDEM 5 MG TAB PO PRN (13:01)
[2018-03-21] MEDS ORDERED: LANOLIN CREAM 5 GM TUBE TOPICAL PRN (13:01)
[2018-03-21] MEDS ORDERED: diphenhydrAMINE 25 MG CAP PO PRN (13:01)
[2018-03-21] MEDS ORDERED: NALOXONE 0.4 MG/ML 1 ML VIAL IV PRN (13:01)
[2018-03-21] MEDS ORDERED: ONDANSETRON 4 MG/2 ML VIAL IVP PRN ×2 (13:01→18:49)
[2018-03-21] MEDS ORDERED: diphenhydrAMINE 50 MG/ML 1 ML VIAL IVP PRN ×2 (13:01)
[2018-03-21] MEDS ORDERED: METOCLOPRAMIDE 5 MG/ML 2 ML VIAL IVP PRN (13:01)
[2018-03-21] MEDS ORDERED: SIMETHICONE 80 MG CHEWABLE PO PRN (13:01)
--- NOTE | 2018-03-21 13:10 | P.HPOB ---
History of Present Illness H&P Date: 03/21/18 Chief Complaint: 39-0/7 weeks, previous section, undesired fertility The patient is a 42-year-old 4 para 1021 admitted at 39-0/7 weeks as established by last menstrual period and confirmed by 21 week ultrasound. She is admitted for repeat low transverse section with intraoperative bilateral tubal occlusion using Filshie clips. Consents have been documented to that effect in the office. She also carries a history of uterine fibroids which have not caused any concerns aside from discomfort. She was diagnosed at her 19 week ultrasound to have a uterine synechia with free movement. She additionally fell into the category of advanced maternal age and declined any chromosomal testing. She did suffer with fairly significant discomfort and contractions throughout the without any cervical change. There was a period of time during which she was placed on terbutaline orally which managed to control a significant amount of her contractions in the early portion of the third trimester. She presents today for repeat low transverse section with tubal ligation as noted above. Group B strep status is negative. Obstetrical history: 4 para 1021 with 1 previous term section without complications. She additionally has had 2 early miscarriages both of which required D&C. Current statistics are listed in history of present illness. EDC of 03/28/2018 was established by last menstrual period and confirmed by a 21 week ultrasound. Laboratory workup demonstrates a blood type of O+ with a negative antibody screen. Rubella status is immune. Remainder of her laboratory workup was within normal limits. She did declined chromosomal testing as noted above. One hour Glucola was within normal limits and group B strep status is negative. Gynecologic history: Unremarkable with no history of any infections to include STDs. Review of Systems Review of systems is confined to history of present illness. Past Medical History Past Medical History: No Reported History, Osteoarthritis (OA) Additional Past Medical History / Comment(s): HX MISSED AB (3 YRS AGO), GERD WHILE ., LAST MENSTRUAL PERIOD JUNE 21, 2017. History of Any Multi-Drug Resistant Organisms: None Reported Past Surgical History: Section, Hernia Repair Additional Past Surgical History / Comment(s): D&C X2 Past Anesthesia/Blood Transfusion Reactions: No Reported Reaction Additional Past Anesthesia/Blood Transfusion Reaction / Comment(s): HX OF BLOOD TRANSFUSION - NO REACTION Past Psychological History: No Psychological Hx Reported Smoking Status: Never smoker Past Alcohol Use History: None Reported Past Drug Use History: None Reported - Past Family History Mother Family Medical History: Deep Vein Thrombosis (DVT) Medications and Allergies Home Medications Medication Instructions Recorded Confirmed Type Pnv No.95/Ferrous Fum/Folic AC 1 tab PO DAILY 12/06/17 03/19/18 History [ Multivitamin Tablet] Anali Damonxer (Unknown Dose) 1 dose PO HS PRN 03/19/18 03/21/18 History Allergies Allergy/AdvReac Type Severity Reaction Status Date / Time latex Allergy Rash/Hives Verified 03/19/18 15:57 Penicillins Allergy Swelling Verified 03/19/18 15:57 Exam - Vital Signs Vital signs: Vital Signs Temp Pulse Resp BP Pulse Ox 03/21/18 10:13 97.8 F 84 18 98/63 97 Intake and Output 03/20/18 03/21/18 03/21/18 22:59 06:59 14:59 Other: Weight 93.894 kg In general, this is a well-developed, well-nourished female in no acute distress. Her heart has a regular rhythm and rate without murmur. Her lungs are clear to auscultation bilaterally in all conti. Her abdomen is gravid, nondistended, has normal active bowel sounds, is soft, nontender, and without any palpable masses aside from uterine fundus. Her extremities are without any cyanosis, clubbing, or significant edema and are nontender to palpation bilaterally. Digital cervical examination is deferred. Results Result Diagrams: 03/21/18 10:54 Abnormal Lab Results - Last 24 Hours (Table) 03/21/18 Range/Units 10:54 RBC 3.36 L (3.80-5.40) m/uL Hgb 10.0 L (11.4-16.0) gm/dL Hct 31.3 L (34.0-46.0) % Assessment and Plan (1) Term Current Visit: Yes Status: Acute Code(s): Z34.80 - ENCOUNTER FOR SUPRVSN OF NORMAL , UNSP TRIMESTER SNOMED Code(s): 24535385 (2) Family planning Current Visit: Yes Status: Acute Code(s): Z30.09 - ENCOUNTER FOR OTH GENERAL CNSL AND ADVICE ON CONTRACEPTION SNOMED Code(s): 691761372 (3) Previous section Current Visit: Yes Status: Acute Code(s): Z98.891 - HISTORY OF UTERINE SCAR FROM PREVIOUS SURGERY SNOMED Code(s): 230270363 Plan: The patient is admitted for repeat low transverse section with intraoperative bilateral tubal occlusion using Filshie clips. The risks and complications of these procedures as well as the permanent nature of tubal ligation has been thoroughly discussed and she has understood and agreed to proceed.
[2018-03-21] MEDS ORDERED: OXYTOCIN 20 UNITS/1000 ML NS 1,000 ML IV SCH (13:15)
--- NOTE | 2018-03-21 13:17 | P.OP ---
Date of Procedure: 03/21/18 Preoperative Diagnosis: #1. 39-0/7 weeks, previous section #2. Undesired fertility #3. Advanced maternal age #4. Uterine fibroids Postoperative Diagnosis: Same Procedure(s) Performed: #1. Repeat low transverse section #2. Intraoperative bilateral tubal occlusion with Filshie clips Anesthesia: spinal Surgeon: Joselito Caruso Lamp Shade Maker #1: Rafaela Ramirez Estimated Blood Loss (ml): 600 IV fluids (ml): 700 Urine output (ml): 75 Pathology: other (Placenta) Condition: stable Disposition: floor Operative Findings: Intraoperatively, the patient was noted to have a moderate amount of scarring at the level of the fascia and muscles. The bladder was scarred fairly high on the lower uterine segment was some dense areas of scarring from the bladder peritoneum to the lower fundal region of the uterus. These were lysed intraoperatively. She was ultimately delivered of a viable 9 lbs. 2 oz. baby boy with Apgars of 9 at 1 minute and 10 at 5 minutes. The placenta was delivered manually, intact, and grossly normal with a grossly normal three- vessel cord. The uterus was noted to have scattered fibroids, none of which are larger than approximately 2-3 cm. The tubes and ovaries were otherwise normal to inspection. A Filshie clip was placed across the isthmic portion of both fallopian tubes. Description of Procedure: The patient was prepped and draped in usual fashion after spinal anesthesia was administered by the anesthesiologist. A Pfannenstiel incision was made near pre -existing scar and extended into the abdominal cavity with some difficulty at the level of the fascia as it was some fairly dense scarring. The fascia was reflected off of the underlying muscles and the abdomen entered without further difficulty. The bladder was noted to be scarred relatively high was some dense adhesive bands from the bladder to the lower uterine segment. These were lysed at the level of the uterus allowing further reflection of the bladder distal to the intended surgical field. An Luis self-retaining retractor was placed into the abdomen in standard fashion. The bladder was further reflected distally. A 2 cm incision was made in the transverse plane of the lower uterine segment to enter the uterus at which time clear fluid was noted. The incision was extended in both directions using the bandage scissors. The head was elevated up and through the incision where the nose and mouth were thoroughly suctioned. Remainder of the was delivered onto the field where the cord was doubly clamped, cut, and the infant passed for resuscitative measures with weight and Apgars as noted above. A segment of cord was doubly clamped, cut, and set aside should cord gases become necessary. The placenta was delivered manually and intact as noted above. The uterus was exteriorized through the incision and the interior cavity swept of any remaining placental or membranous fragments. The margins of the incision were grasped with Huerta clamps and the incision closed in a single running locking stitch of 0 chromic catgut proceeding from margin to margin. There was minimal ongoing bleeding aside from some of the areas of previous adhesive bands that had been lysed. These were made hemostatic with the Bovie. The uterine and ovarian findings are as noted above with scattered fibroids perhaps in the range of 2 cm to 3 cm at the greatest dimension. The posterior cul-de-sac was suctioned with a guard and verbal consent again received from the patient for tubal ligation. A Filshie clip was placed across the isthmic portion of the left fallopian tube approximately 2-3 cm from the cornu where it was firmly affixed. A similar operation was carried out on the right side without difficulty. The uterus was replaced within the abdominal cavity and the gutters were swept of any remaining blood, fluid, or clot. The incision was reexamined and noted to be hemostatic. Any small points of bleeding on the bladder peritoneum or from previous adhesive bands were made hemostatic with the Bovie. Once hemostasis was adequate, the parietal peritoneum was loosely reapproximated. As the muscles were gaping to some extent, they were reapproximated with a very loose wide [id number] stitch of 0 chromic catgut. Examination of the muscles demonstrated excellent hemostasis. The fascia was closed with 2 running stitches of 0 Vicryl proceeding from lateral margins to the midpoint. The subcutaneous tissues were irrigated and made hemostatic with the Bovie. They were then closed with a running stitch of 30 plain catgut. The skin was reapproximated with a running subcuticular stitch of 4-0 Vicryl followed by half -inch Steri-Strips placed with Mastisol. Estimated blood loss for the case was approximately 600 mL. There were no complications. All sponge, instrument, and needle counts were correct. Both mother and are resting comfortably in recovery.
[2018-03-21] MEDS: KETOROLAC 30 MG/ML 1 ML VIAL IVP PRN ×2 (16:13→22:13)
[2018-03-21] MEDS: SENNOSIDES-DOCUSATE SODIUM 1 EACH TAB PO SCH (22:07)
[2018-03-22] MEDS: LACTATED RINGERS 1,000 ML IV SCH ×4 (03:43→13:22)
[2018-03-22] MEDS: KETOROLAC 30 MG/ML 1 ML VIAL IVP PRN ×2 (05:18→11:40)
[2018-03-22] MEDS: SENNOSIDES-DOCUSATE SODIUM 1 EACH TAB PO SCH ×2 (07:58→21:04)
--- NOTE | 2018-03-22 08:05 | P.PN ---
Progress Note - Text Date:[03/22] Time:[717am] Patient is status post []. Patient seen this morning with VAS score of [2]. c/o of pruritus, c/o nausea/vomiting. She is comfortable and doing well this morning.
[2018-03-22 08:09] LABS: Basophils % (A) 0 %; Eosinophils # (A) 0.1 k/uL (0-0.7); Eosinophils % (A) 1 %; HCT 28.6 % (34.0-46.0); HGB 9.1 gm/dL (11.4-16.0); Lymphocytes # (A) 0.9 k/uL (1.0-4.8); Lymphocytes % (A) 8 %; MCH 29.8 pg (25.0-35.0); MCHC 31.8 g/dL (31.0-37.0); MCV 93.9 fL (80.0-100.0); Mean Platelet Volume 7.3; Monocytes # (A) 0.6 k/uL (0-1.0); Monocytes % (A) 5 %; Neutrophils # (A) 9.6 k/uL (1.3-7.7); Neutrophils % (A) 83 %; Platelet Count 263 k/uL (150-450); RBC 3.05 m/uL (3.80-5.40); RDW 14.1 % (11.5-15.5); WBC 11.6 k/uL (3.8-10.6)
--- NOTE | 2018-03-22 10:33 | P.PNOBGPC ---
Subjective - Subjective Patient reports: Reports appetite normal, Reports voiding normally, Reports pain well controlled, Reports ambulating normally : doing well, nursing well Objective - Vital Signs Latest vital signs: Vital Signs Temp Pulse Resp BP Pulse Ox 03/22/18 08:00 98.4 F 78 18 105/62 03/22/18 04:00 98.0 F 75 18 115/70 100 03/22/18 00:00 98.3 F 78 18 104/56 98 03/21/18 20:00 98.2 F 77 18 177/75 100 03/21/18 16:00 98.5 F 83 18 104/66 99 03/21/18 14:30 80 107/52 03/21/18 14:00 97.0 F L 78 18 106/73 03/21/18 13:45 97.1 F L 83 18 103/65 97 03/21/18 13:30 100 96/50 03/21/18 13:15 97.2 F L 88 18 104/56 96 03/21/18 13:00 98.0 F 90 18 104/55 96 Intake and Output 03/21/18 03/22/18 03/22/18 22:59 06:59 14:59 Output Total 300 500 700 Balance -300 -500 -700 Output: Urine 300 500 700 Straight 500 Uretheral (Person) 300 Other: # Voids 1 - Exam Extremities: Present: normal Abdomen: Present: normal appearance, soft. Absent: distention, tenderness Incision: Present: normal, dry, intact Uterus: Present: normal, firm (The uterine fundus as tonic and nontender just below the umbilicus) - Labs Labs: Abnormal Lab Results - Last 24 Hours (Table) 03/21/18 03/22/18 Range/Units 10:54 07:52 WBC 11.6 H (3.8-10.6) k/uL RBC 3.36 L 3.05 L (3.80-5.40) m/uL Hgb 10.0 L 9.1 L (11.4-16.0) gm/dL Hct 31.3 L 28.6 L (34.0-46.0) % Neutrophils # 9.6 H (1.3-7.7) k/uL Lymphocytes # 0.9 L (1.0-4.8) k/uL Assessment and Plan (1) Term Current Visit: Yes Status: Acute Code(s): Z34.80 - ENCOUNTER FOR SUPRVSN OF NORMAL , UNSP TRIMESTER SNOMED Code(s): 79031730 (2) Family planning Current Visit: Yes Status: Acute Code(s): Z30.09 - ENCOUNTER FOR OT GENERAL CNSL AND ADVICE ON CONTRACEPTION SNOMED Code(s): 903148983 (3) Previous section Current Visit: Yes Status: Acute Code(s): Z98.891 - HISTORY OF UTERINE SCAR FROM PREVIOUS SURGERY SNOMED Code(s): 934947270 (4) S/P section Current Visit: Yes Status: Acute Code(s): Z98.891 - HISTORY OF UTERINE SCAR FROM PREVIOUS SURGERY SNOMED Code(s): 663140306 Plan: Continue routine and postoperative care. I would anticipate discharge home tomorrow pending no complications. I have encouraged the patient amulet in the halls at least 4 times daily and she is already tolerating regular diet.
[2018-03-22] MEDS: IBUPROFEN 600 MG TAB PO PRN (19:57)
[2018-03-23 00:28] VITALS: RESP 16
[2018-03-23] MEDS: IBUPROFEN 600 MG TAB PO PRN (04:41)
[2018-03-23] MEDS: SENNOSIDES-DOCUSATE SODIUM 1 EACH TAB PO SCH (08:47)
[2018-03-23 08:49] VITALS: BP 107/65; PULSE 80; TEMP 98.6
--- NOTE | 2018-03-23 10:51 | P.DS ---
Providers Date of admission: 03/21/18 10:05 Expected date of discharge: 03/23/18 Attending physician: Joselito Caruso Primary care physician: Stated None - Discharge Diagnosis(es) (1) Advanced maternal age (AMA) in Current Visit: Yes Status: Acute (2) Fibroid uterus Current Visit: Yes Status: Acute (3) Previous section Current Visit: Yes Status: Acute (4) S/P section Current Visit: Yes Status: Acute (5) Term Current Visit: Yes Status: Acute (6) Family planning Current Visit: Yes Status: Acute Hospital Course: This is a very pleasant 42-year-old 4 para 10-1 at 39-0/7 weeks that presented to labor and delivery on 517 for repeat section. She had a tubal occlusion with Filshie clips in addition. The was done without difficulty for further details on the please see the operative report. She delivered a viable male weight of 9 lbs. 2 oz. with Apgars of 9 and 10 at one and 5 minutes respectively. Patient's course has been uneventful. On this day #2 she is ambulating and voiding without difficulty. She states her pain is well-controlled with Motrin and an occasional Wilmot. She is ambulating and voiding without difficulty. She is tolerating a regular diet without nausea or vomiting, she is breast-feeding without difficulty. She does desire discharge home today. Patient Condition at Discharge: Good Plan - Discharge Summary Discharge Rx Participant: Yes New Discharge Prescriptions: No Action Pnv No.95/Ferrous Fum/Folic AC [ Multivitamin Tablet] 1 tab PO DAILY Benadry Elixer (Unknown Dose) 1 dose PO HS PRN PRN Reason: Insomnia Discharge Medication List Pnv No.95/Ferrous Fum/Folic AC [ Multivitamin Tablet] 1 tab PO DAILY 11/22 [History] Benadry Elixer (Unknown Dose) 1 dose PO HS PRN 03/19/18 [History] Follow up Appointment(s)/Referral(s): Joselito Caruso MD [STAFF PHYSICIAN] - 2 Weeks Patient Instructions/Handouts: (DC) Discharge Disposition: HOME SELF-CARE
== END 2018-03-23 11:35 | disposition home or self-care (01) | DRG 766 ==
LOC: 4FBP 10:05
PROVIDERS: ADMIT Obstetrics & Gynecology; ATTEND Obstetrics & Gynecology
PROC: 0UL70CZ Occlusion of Bilateral Fallopian Tubes with Extraluminal Device, Open Approach (ICD-10-PCS; 2018-03-21)
PROC: 10D00Z1 Extraction of Products of Conception, Low, Open Approach (ICD-10-PCS; principal; 2018-03-21 12:00)
DX: O34.211 Maternal care for low transverse scar from previous cesarean delivery (principal); D25.9 Leiomyoma of uterus, unspecified; O34.13 Maternal care for benign tumor of corpus uteri, third trimester; K21.9 Gastro-esophageal reflux disease without esophagitis; O99.62 Diseases of the digestive system complicating childbirth; Z37.0 Single live birth; Z3A.39 39 weeks gestation of pregnancy; Z30.2 Encounter for sterilization
CPT/HCPCS: 85025; 86850; 86900; 86901; 88307

== ENCOUNTER → 2020-12-02 | Outpatient (CLI) | payer OTHER ==
[2020-12-02 21:26] LABS: African American GFR (CKD) 120.4 (60.0-200.0); Albumin 4.5 g/dL (3.80-4.90); Albumin/Globulin Ratio 1.88 (1.60-3.17); Anion Gap 7.1 mmol/L (4.00-12.00); BUN/Creat Ratio 17.14 Ratio (12.00-20.00); Calcium 9.5 mg/dL (8.7-10.3); Carbon Dioxide 29.9 mmol/L (21.6-31.8); Globulin 2.4 g/dL (1.6-3.3); Non-African American GFR(CKD) 103.9 (60.0-200.0); Potassium 4.1 mmol/L (3.5-5.5); Total Bilirubin 0.3 mg/dL (0.2-1.2); Total Protein 6.9 g/dL (6.2-8.2)
== END | disposition home or self-care (01) ==
LOC: LABWHC1 12:40
PROVIDERS: ATTEND Internal Medicine
DX: G89.29 Other chronic pain (principal); R22.43 Localized swelling, mass and lump, lower limb, bilateral
CPT/HCPCS: 36415; 80053; 83880

== ENCOUNTER 2021-01-25 16:24 | Emergency (ER) | payer OTHER ==
[2021-01-25 17:08] VITALS: BP 157/84; PULSE 81; RESP 18; TEMP 98.4
--- NOTE | 2021-01-25 18:01 | ED ---
General Adult HPI - General Source: patient Mode of arrival: ambulatory Limitations: no limitations <Jimenez Ram - Last Filed: 01/25/21 18:00> - General Source: RN notes reviewed, old records reviewed <Ulisses Shrestha - Last Filed: 01/25/21 19:45> - General Chief complaint: Extremity Problem,Nontraumatic Stated complaint: leg pain/swelling - History of Present Illness Initial comments: Patient presented for right calf pain x 2 months. Denies overlying erythema or ecchymosis. denies injuries to the region. Denies chest pain or shortness of breath. (Jimenez Ram) - Related Data Previous Rx's Medication Instructions Recorded Ibuprofen [Motrin] 600 mg PO Q8HR PRN #24 tab 01/25/21 Allergies Allergy/AdvReac Type Severity Reaction Status Date / Time latex Allergy Rash/Hives Verified 01/25/21 18:47 Penicillins Allergy Swelling Verified 01/25/21 18:47 Review of Systems ROS Other: All systems not noted in ROS Statement are negative. <Jimenez Ram - Last Filed: 01/25/21 18:00> ROS Other: All systems not noted in ROS Statement are negative. <Ulisses Shrestha - Last Filed: 01/25/21 19:45> ROS Statement: Those systems with pertinent positive or pertinent negative responses have been documented in the HPI. Past Medical History Past Medical History: No Reported History, Osteoarthritis (OA) Additional Past Medical History / Comment(s): HX MISSED AB (3 YRS AGO), GERD WHILE ., LAST MENSTRUAL PERIOD JUNE 21, 2017. History of Any Multi-Drug Resistant Organisms: None Reported Past Surgical History: Section, Hernia Repair Additional Past Surgical History / Comment(s): D&C X2 Past Anesthesia/Blood Transfusion Reactions: No Reported Reaction Additional Past Anesthesia/Blood Transfusion Reaction / Comment(s): HX OF BLOOD TRANSFUSION - NO REACTION Past Psychological History: No Psychological Hx Reported Smoking Status: Never smoker Past Alcohol Use History: None Reported Past Drug Use History: None Reported - Past Family History Mother Family Medical History: Deep Vein Thrombosis (DVT) <Jimenez Ram - Last Filed: 01/25/21 18:00> General Exam Limitations: no limitations <Jimenez Ram - Last Filed: 01/25/21 18:00> - General Exam Comments Initial Comments: General: Well-developed, no distress HEENT: Normocephalic/atraumatic, PERLL, pharynx erythema, TM clear Chest/Lungs: Normal respirations, no signs of respiratory distress clear to auscultation bilaterally no wheezes, rales, rhonchi Cardiac: Regular rate and rhythm Abdomen/GI: Soft nontender, Musculoskeletal: right calf tenderenss, palpable DP and PT bilaterally, full range of motion Skin: Warmth, no rashes or lesions, no diaphoresis Neurologic: AAO x 3, normal gait Psychiatric: Mood and affect normal, judgment normal (Jimenez Ram) Course Vital Signs 01/25/21 17:04 Temperature 98.4 F Pulse Rate 81 Respiratory 18 Rate Blood Pressure 157/84 O2 Sat by Pulse 99 Oximetry Medical Decision Making <Ulisses Shrestha - Last Filed: 01/25/21 19:45> - Medical Decision Making 45-year-old female presenting with one month of right calf pain. She has noted some swelling. No fevers. No chest pain or difficulty breathing. Ultrasound performed, negative for DVT. There is an incidental note of a right inguinal lymph node. Patient will monitor. Patient is given orthopedic follow-up for ongoing symptoms. (Ulisses Shrestha) Disposition <Jimenez Ram - Last Filed: 01/25/21 18:00> Is patient prescribed a controlled substance at d/c from ED?: No Time of Disposition: 19:44 <Ulisses Shrestha - Last Filed: 01/25/21 19:45> Clinical Impression: Strain of right calf muscle Disposition: HOME SELF-CARE Condition: Good Instructions (If sedation given, give patient instructions): Leg Cramps (ED) Prescriptions: Ibuprofen [Motrin] 600 mg PO Q8HR PRN #24 tab PRN Reason: Pain Referrals: Rain Abrams MD [Primary Care Provider] - 1-2 days Joseph Rodriguez MD [STAFF PHYSICIAN] - 1-2 days
--- NOTE | 2021-01-25 19:18 | US ---
EXAMINATION TYPE: US venous doppler duplex LE RT DATE OF EXAM: 01/25/2021 6:02 PM COMPARISON: NONE CLINICAL HISTORY: r/o dvt. Pain and swelling x 1 month. Hx DVT in left leg per patient. Patient does not take blood thinners. SIDE PERFORMED: Right TECHNIQUE: The lower extremity deep venous system is examined utilizing real time linear array sonog amada with graded compression, doppler sonography and color-flow sonography. VESSELS IMAGED: Common Femoral Vein Deep Femoral Vein Greater Saphenous Vein * Femoral Vein Popliteal Vein Small Saphenous Vein * Proximal Calf Veins (* superficial vessels) Right Leg: Limited due to edema. No evidence of DVT in veins imaged at this time from prox calf veins to CFV/GSV. Hypoechoic area with hyperechoic center seen within the right groin measurin.2 x 1.2 x 0.9 and consistent with lymph node. Popliteal vein appears small, nonspecific. IMPRESSION: No evidence of right lower extremity DVT. Incidental mildly prominent right inguinal lymph node, may be reactive.
== END 2021-01-25 20:01 | disposition home or self-care (01) ==
LOC: EC 16:24
DX: S86.911A Strain of unspecified muscle(s) and tendon(s) at lower leg level, right leg, initial encounter (principal); X58.XXXA Exposure to other specified factors, initial encounter; Z86.718 Personal history of other venous thrombosis and embolism

== ENCOUNTER → 2021-11-10 | Outpatient (CLI) | payer OTHER ==
--- NOTE | 2021-11-10 14:40 | US ---
EXAMINATION TYPE: US venous doppler duplex LE RT DATE OF EXAM: 11/10/2021 1:36 PM COMPARISON: 01/25/2021 CLINICAL HISTORY: 46-year-old female I82.401,I82.402,[id number] PAIN, DVT, SWELLING. Right leg pain SIDE PERFORMED: Right TECHNIQUE: The lower extremity deep venous system is examined utilizing real time linear array sonog amada with graded compression, doppler sonography and color-flow sonography. FINDINGS: VESSELS IMAGED: Common Femoral Vein Deep Femoral Vein Greater Saphenous Vein * Femoral Vein Popliteal Vein Small Saphenous Vein * Proximal Calf Veins (* superficial vessels) Right Leg: Appears negative for DVT IMPRESSION: No evidence for DVT within the right lower extremity imaged from the groin to the upper calf.
== END | disposition home or self-care (01) ==
LOC: RADUSWWP 13:15
PROVIDERS: ATTEND Orthopaedic Surgery
DX: I82.402 Acute embolism and thrombosis of unspecified deep veins of left lower extremity (principal); M79.661 Pain in right lower leg

== ENCOUNTER 2023-03-30 09:33 | Emergency (ER) | payer OTHER ==
[2023-03-30 09:38] VITALS: RESP 16; TEMP 98.8
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
[2023-03-30 10:41] VITALS: PULSE 86
[2023-03-30 12:18] VITALS: BP 161/91
== END 2023-03-30 12:17 ==
LOC: EC 09:33
DX: S39.012A Strain of muscle, fascia and tendon of lower back, initial encounter (principal); Z88.0 Allergy status to penicillin; Z91.040 Latex allergy status; V89.2XXA Person injured in unspecified motor-vehicle accident, traffic, initial encounter; Y92.410 Unspecified street and highway as the place of occurrence of the external cause
CPT/HCPCS: 72110; 99284

== ENCOUNTER → 2023-11-30 | Outpatient (CLI) | payer OTHER ==
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
== END | disposition home or self-care (01) ==
LOC: RADMRIMAIN 07:38
PROVIDERS: ATTEND Orthopaedic Surgery
DX: M19.012 Primary osteoarthritis, left shoulder (principal); M67.814 Other specified disorders of tendon, left shoulder; M50.221 Other cervical disc displacement at C4-C5 level; M50.222 Other cervical disc displacement at C5-C6 level; M75.42 Impingement syndrome of left shoulder; M48.02 Spinal stenosis, cervical region
CPT/HCPCS: 72141

== ENCOUNTER → 2024-01-21 | Outpatient (CLI) | payer OTHER | END | disposition home or self-care (01) | LOC: LABPAT 11:09 | PROVIDERS: ATTEND Orthopaedic Surgery | DX: Z01.812 Encounter for preprocedural laboratory examination (principal); Z22.322 Carrier or suspected carrier of Methicillin resistant Staphylococcus aureus; M50.20 Other cervical disc displacement, unspecified cervical region | CPT/HCPCS: 86850; 86900; 86901; 87070 ==

== ENCOUNTER 2024-01-29 05:47 | Day surgery (SDC) | payer OTHER ==
[2024-01-24 10:56] VITALS: BMI 32.9
[~2024-01-29 05:47] MED LIST: TRANEXAMIC 1,000 MG/100ML-NACL 1,000 MG in SALINE 1 100ML.BAG IVPB PRN
[2024-01-29] MEDS ORDERED: LIDOCAINE 1% (10MG/ML) FOR IV START INTRADERMA PRN (06:06)
--- NOTE | 2024-01-29 06:23 | P.HPOR ---
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 I reviewed the patient's clinical syndrome, physical findings, and imaging studies during the appointment today. It is my impression that the patient has a diagnosis of. 1. C6-7 herniated nucleus pulposus 2. Left upper extremity weakness 3. Neck pain Spine Surgery Risk Review Ms. Edwards is presenting for evaluation of neck and left upper extremity pain, left upper extremity numbness, tingling, and weakness. It was my pleasure to have seen and examined Ms. Edwards. In our visit today we have had a chance to go over subjective complaints, physical examination findings and treatments including the natural course history without intervention and various interventional options. The patients imaging demonstrates: [facility] from[facility]23 of CervicalSpine and Left shoulder: - Images re-reviewed with the patient today. IMPRESSION: 1. Large left paracentral disc herniation C6-7 with thecal sac compression and cord contact. Cord deformity is noted. There may be some minimal signal change within the spinal cord on T2 sequences at this level. AP spinal canal stenosis is present. 2. Very minimal disc bulging C5-6 C4-5 without cord contact or spinal canal stenosis. XRay Cervical multiview (Lateral, Flexion, Extension, AP, Oblique) and Left Shoulder (AP/LAT) [facility] - Images re-reviewed with the patient today. Cervical:Mild multilevel spondylitic and degenerative changes with straightening of the normal lordosis. Multilevel diminished disc height. Vertebral body heights are preserved. No acute osseous abnormalities. Left shoulder: No fracture. No joint dislocation. The humeral head is within the glenoid. Bone density is normal. No acute osseous abnormalities. On physical exam, Ms. Edwards demonstrates: A continued throbbing, ache-like pain throughout the neck that radiates down into the left upper extremity with a sharp, shooting quality. She states her left upper extremity pain is associated with numbness and tingling. The patient notes progressive left upper extremity weakness. The patient states her symptoms worsen after prolonged activity or when ambulating the head to the right or left. Te patient notes frequent headaches that occur approximately five times per week with worsening intensity over the last 2 to 3 weeks. The patient reports experiencing severe sleep disturbances related to her ongoing pain and associated symptoms. I have explained to the patient that as their condition progresses it will cause further neurological deficits and eventual paralysis. Based on the patients imaging, physical exam, and the rapid progression and disabling nature of their symptoms, at this time I recommend surgery in the form of a: C6-7 ACDF. I discussed the risk and benefits of this procedure at length with Ms. Edwards. The patient agreed to considered pursuing the procedure abovementioned. Prior to surgery, she should follow up with her PCP (Cardio, ID, IM etc) for clearance. Questions were invited and answered, and the patient wishes to proceed as outlined below. Currently, I am recommendin.C6-7 ACDF 2.Review of surgical risks and benefits as well as an educational packet on the proposed surgical procedure. Risks: All surgical procedures come with inherent risks, including those related to positioning, anesthesia, intraoperative findings, and postoperative complications. It is important to understand that surgery does not come with any guarantee of a successful outcome as complications and adverse events are always possible. The patient was given a handout in office today discussing the surgical procedure and risks associated with the intervention, both of which were discussed with the patient. These risks include but are not limited to the following: * Experiencing same, different or even worse symptoms in back, neck, arms, or legs compared to before surgery. Requiring further surgery or other forms of treatment presently or at some time in the future at same or other levels of the intended spine surgery. On an extreme but fortunately relatively rare basis severe complication such as blindness, stroke, heart attack, temporary and/or permanent nerve injury, paralysis, coma, or may occur, sometimes without known explanation. Surgical complications may include but are not limited to risk of infection, fluid accumulation in the surgical dissection site, including a seroma or hematoma, that requires additional surgery, wound drainage, bleeding, new numbness or weakness, vision changes/loss, spinal fluid leakage, non-healing and/or infected incision, headaches, difficulty or inability to swallow, hoarseness, hemopneumothorax, pneumothorax, impotence, retrograde ejaculation, vaginal dryness; injury to nerves, spinal cord, blood vessels, lymphatics or other vital organs (i.e., bowel injury, injury to the great vessels); heterotop ic bone formation; complications related to the hardware such as screws, rods, cages including misplaced hardware, device failure, instrumentation at the wrong spine level, hardware fracture/breakage, or hardware loosening; vertebral failure of the spinal column above or below the newly placed hardware; retained surgical instrumentations or devices and the need for further surgery. * Medical risks of the planned spine surgery include but are not limited to generalized Infections to the whole body or local areas outside of the surgical site (sepsis), heart attack, bleeding, anaphylaxis, meningitis, seizure, epilepsy, hearing loss, burn cristobal, laceration of the head or other areas of the body, bruising, hypersensitivity of the skin, bladder over distension; allergic reaction; shoulder injury related to positioning; fat, blood and air clots to other areas of the body like heart, lungs, brain; failure of internal organs such as lungs, kidneys, liver and excessive bleeding. If blood transfusions are necessary, note that transfusions may cause intolerance reactions such as anaphylaxis or other complex reactions. Despite best efforts, the results of spine surgery might not heal in terms of bone, soft tissues such as skin, fascia, ligaments, and joints. Additionally, in order to achieve best possible results, spine surgery may be carried out beyond the initially planned levels and involve decompression, fusion including insertion of hardware at levels other than the original intended area of surgical interest change some portions of the procedure in order to ensure the best possible outcomes. With spine surgery and spinal fusion, there are different off label uses of instrumentation (devices, implants and hardware) as well as biological substances (bone morphogenic proteins, demineralized bone matrix) as well as using extra bone from allograft sources (i.e. cadaver bone) or autograft (iliac crest bone, ribs, or the spine itself). The patient has been given information about these practices and their inherent risks and benefits. [facility] is an educational center that serves as a training facility for neurosurgical and orthopedic H[employer] and Nursing students. Physician assistants are medically trained surgical providers who function in the outpatient, inpatient, and operating room setting under the direct supervision of the attending surgeon. [facility] has multiple operating rooms with single and overlapping rooms running daily. They currently function under the required guidelines as produced by the Senate Finance Committee with regards to the overlapping rooms and will continue to comply with changes to this policy as they occur. The requirements include and are complied with as follows: (1) the critical portions of the overlapping rooms will not occur at the same time, (2) the attending physician will be physically present during the critical portions of the procedure and immediately available during the entire case, and (3) a back-up attending is designated should the primary attending not be immediately available. The patient has had a chance to review all the listed information, has been given print outs detailing this information, and has had all his/her questions answered to their satisfaction. It was my pleasure to have seen and examined Ms. Edwards. In our visit today we have had a chance to go over my understanding of our patient's current condition, the natural course history without intervention and various interventional options. Questions were invited and answered, and the patient wishes to proceed as outlined above. I have seen and examined the patient for 25 minutes and we have spent more than 50% of the time in repeat and detailed counseling about the patient's condition, its natural course history with out and as much as can be predicted with surgery and re-review of various surgical treatment options. In conclusion, Ms. Edwards requested we proceed with the above suggested surgery and are willing to accept risks and limitations of the suggested surgery as nature of the disease process and our best attempts at treatment for the condition. FOLLOW UP: Post Procedure PLAN AT NEXT VISIT: X-RAYS CERVICAL SPINE (AP/LAT) PATIENT EDUCATION: Medications Reviewed: YES In our visit today Ms. Edwards and I have had a chance to go over my understanding of the patient's current condition, the natural course history without intervention and various interventional options. Questions were invited and answered, and the patient wishes to proceed as outlined above. I will be sure to keep you updated after Ms. Edwards returns here for further follow-up. Thank you again for your referral. Please do not hesitate to contact me if you have any further questions. Signed and authenticated by: Jatinder Moreno [facility] [address] [facility], [address] [address] This message is confidential, intended only for the named recipient(s) and may contain information that is privileged or exempt from disclosure under applicable law. If you are not the intended recipient(s), you are notified that the dissemination, distribution or copying of this information is strictly prohibited. If you received this message in error, please notify the sender then delete this message. # SIGNED BY Jatinder Cox (GOJoan)01/26/2024 09:21AM Past Medical History Past Medical History: Osteoarthritis (OA) Additional Past Medical History / Comment(s): HX MISSED AB (3 YRS AGO), GERD WHILE ., History of Any Multi-Drug Resistant Organisms: None Reported Past Surgical History: Section, Hernia Repair Additional Past Surgical History / Comment(s): D&C X2, COLONOSCOPY Past Anesthesia/Blood Transfusion Reactions: No Reported Reaction Additional Past Anesthesia/Blood Transfusion Reaction / Comment(s): HX OF BLOOD TRANSFUSION - NO REACTION Smoking Status: Never smoker - Past Family History Father Family Medical History: Cancer Mother Family Medical History: Cancer, Deep Vein Thrombosis (DVT) Medications and Allergies Home Medications Medication Instructions Recorded Confirmed Type Acetaminophen [Tylenol Extra 1,000 mg PO Q8H PRN 01/24/24 01/24/24 History Strength] Allergies Allergy/AdvReac Type Severity Reaction Status Date / Time latex Allergy Rash/Hives Verified 01/29/24 06:21 Penicillins Allergy Swelling Verified 01/29/24 06:21 Physical Examination Osteopathic Statement: *. No significant issues noted on an osteopathic structural exam other than those noted in the History and Physical/Consult.
[2024-01-29] MEDS: ACETAMINOPHEN TAB 500 MG TAB PO PRN (06:38)
[2024-01-29] MEDS: GABAPENTIN 300 MG CAP PO PRN (06:38)
[2024-01-29] MEDS: LACTATED RINGERS 1,000 ML IV SCH (06:40)
[2024-01-29] MEDS: DEXAMETHASONE SOD PHOSPHATE 4 MG/ML 1 ML VIAL IV ONE (06:55)
[2024-01-29] MEDS: ONDANSETRON 4 MG/2 ML VIAL IVP PRN ×2 (06:55→11:17)
[2024-01-29] MEDS: FAMOTIDINE 20 MG/2 ML VIAL IV ONE (06:55)
[2024-01-29] MEDS: SCOPOLAMINE 1 MG/72 HR PATCH TRANSDERM ONE (06:55)
[2024-01-29] MEDS ORDERED: HYDROmorphone 0.5 MG/0.5 ML SYRINGE IVP PRN ×2 (07:00→09:15)
[2024-01-29] MEDS: THROMBIN (BOVINE) 5,000 UNIT VIAL TOPICAL ONE (07:30)
[2024-01-29] MEDS ORDERED: HYDROcodone/APAP 10-325MG 1 EACH TAB PO PRN (09:15)
[2024-01-29] MEDS ORDERED: HYDROcodone/APAP 5-325MG 1 EACH TAB PO PRN (09:15)
[2024-01-29] MEDS ORDERED: CYCLOBENZAPRINE 5 MG TAB PO PRN (09:15)
--- NOTE | 2024-01-29 09:22 | XR ---
EXAMINATION TYPE: XR cervical spine limited DATE OF EXAM: 01/29/2024 COMPARISON: NONE HISTORY: Intraoperative TECHNIQUE: 7 views submitted FINDINGS: Limited resolution intraoperative views demonstrate an endotracheal tube and surgical instr uments. Surgical changes are seen suggestive of fusion within the lower cervical spine. IMPRESSION: See above
--- NOTE | 2024-01-29 09:32 | P.OP ---
Date of Procedure: 01/29/24 Preoperative Diagnosis: 1. C6-7 HNP WITH STENOSIS 2. LUE RADICULOPATHY 3. LUE WEAKNESS 4. NECK PAIN Postoperative Diagnosis: 1. C6-7 HNP WITH STENOSIS 2. LUE RADICULOPATHY 3. LUE WEAKNESS 4. NECK PAIN Procedure(s) Performed: 1. C6-7 ANTERIOR CERVICAL ARTHRODESIS 2. C6-7 ANTERIOR INSTRUMENTATION 3. C6-7 PLACEMENT OF BIOMECHANICAL DEVICE, CAGE USE OF IONM USE OF IO MICROSCOPE Implants: ABRAHAM CASCADIA 9MM 7 DEG STYKER OZARK PLATE AND SCREWS 14MM [employer] AUT[employer]RAFT Anesthesia: GETA Surgeon: Jatinder Cox Air Tube Releaser #1: Joselin Reyes (WAS PRESENT AND ASSISTED WITH ALL ASPECTS OF THE CASE FROM POSITION TO CLOSURE) Estimated Blood Loss (ml): 20 IV fluids (ml): 1,000 Urine output (ml): 0 Pathology: none sent Condition: stable Disposition: PACU Indications for Procedure: Ms. Edwards is presenting for evaluation of neck and left upper extremity pain, left upper extremity numbness, tingling, and weakness. It was my pleasure to have seen and examined Ms. Edwards. In our visit today we have had a chance to go over subjective complaints, physical examination findings and treatments including the natural course history without intervention and various interventional options. The patients imaging demonstrates: [facility] from11[facility]30[facility]23 of CervicalSpine and Left shoulder: - Images re-reviewed with the patient today. IMPRESSION: 1. Large left paracentral disc herniation C6-7 with thecal sac compression and cord contact. Cord deformity is noted. There may be some minimal signal change within the spinal cord on T2 sequences at this level. AP spinal canal stenosis i s present. 2. Very minimal disc bulging C5-6 C4-5 without cord contact or spinal canal stenosis. XRay Cervical multiview (Lateral, Flexion, Extension, AP, Oblique) and Left Shoulder ([facility]/LAT) [facility] - Images re-reviewed with the patient today. Cervical:Mild multilevel spondylitic and degenerative changes with straightening of the normal lordosis. Multilevel diminished disc height. Vertebral body heights are preserved. No acute osseous abnormalities. Left shoulder: No fracture. No joint dislocation. The humeral head is within the glenoid. Bone density is normal. No acute osseous abnormalities. On physical exam, Ms. Edwards demonstrates: A continued throbbing, ache-like pain throughout the neck that radiates down into the left upper extremity with a sharp, shooting quality. She states her left upper extremity pain is associated with numbness and tingling. The patient notes progressive left upper extremity weakness. The patient states her symptoms worsen after prolonged activity or when ambulating the head to the right or left. Te patient notes frequent headaches that occur approximately five times per week with worsening intensity over the last 2 to 3 weeks. The patient reports experiencing severe sleep disturbances related to her ongoing pain and associated symptoms. I have explained to the patient that as their condition progresses it will cause further neurological deficits and eventual paralysis. Based on the patients imaging, physical exam, and the rapid progression and disabling nature of their symptoms, at this time I recommend surgery in the form of a: C6-7 ACDF. I discussed the risk and benefits of this procedure at length with Ms. Edwards. The patient agreed to considered pursuing the procedure abovementioned. Prior to surgery, she should follow up with her PCP (Cardio, ID, IM etc) for clearance. Questions were invited and answered, and the patient wishes to proceed as outlined below. Currently, I am recommendin.C6-7 ANTERIOR CERVICAL DISCECOMTY AND FUSION Description of Procedure: C6-7 ACDF The patient was seen and examined in the preoperative area. All preoperative protocols were followed. Informed consent was obtained, risks and benefits of the procedure were discussed at length. Risks including bleeding infection damage to the surrounding tissue and risk of reoperation were discussed with the patient. Risk of anesthesia up to and including was discussed with the patient. These are outlined in the risk review. They were willing to accept these risks and all the risks of surgery. The patient was given a weight-based dose of antibiotics in the form of 2 g Ancef. The patient was seen and evaluated by the anesthesia team who deemed them fit for surgery. The site was marked, the patient was willing to proceed with the procedure. The patient was transferred to the operative suite by the Department of anesthesia. They were then drifted off to sleep by the department anesthesia and GETA was performed. The patient tolerated this well. Person catheter was placed by nursing staff, a-traumatically. Once confirmation of lines and ventilation the patient was transferred to a Supine Frank table very carefully. All bony prominences including wrists, elbows, axilla, chest, hips, and thighs, and feet were padded very well. Special attention was paid to the genitalia, and these were padded accordingly. SCDs were placed on bilateral lower extremities and were connected. Arms were well padded and placed at their side thumbs up. Once in position, again we confirmed good ventilation capabilities and that lines were running appropriately. The patients Cervical spine was then exposed. 1010s were placed outlining the incision site. Standard alcohol was used to clean the incision site and allowed to dry. C-arm was used to bio-nafisa the patient and confirm level for incision which was marked with a skin marker. Operative briefing was performed with all teams and everyone in agreement to proceed. The patient was then prepped and draped in a normal sterile fashion. Timeout was then performed, and all parties agreed with the procedure to be performed. Transverse skin incision was then made on the right side of the patient's neck 3 cm and dissection taken down to the platysma which was split transversely. Sub platysma flap was made, and interval identified between SCM and medial structures. Omohyoid was visualized and protected. Blunt dissection taken down to the anterior cervical fascia which was identified. Blunt probe was then placed and lateral image taken which confirmed levels for operation. These levels were then marked with a bovi. Subperiosteal dissection of the longissimus muscles were then done over these levels identifying uncovertebral joints bilaterally. Retractor was then placed deep to these muscles and held in place with a bed arm. Starting at C6-7, Nu Mine pins were placed into C6 and C7 and gentle distraction taken out over the levels. Karin rongeur used to remove disc material. Operating microscope brought in for visualization. Complete discectomy performed at this level with curette, rongure and pituitary. High speed wander used to remove osteophytes anteriorly and posteriorly until PLL was identified. 6-0 up curette then used to identify the canal and resect the PLL. 2-0 and 3-0 Kerrison used then to remove PLL and disc herniation and performed b/l foraminotomies. Once good decompression was accomplished, meticulous hemostasis was performed. Sizers were then placed under lateral fluoroscopy until the desired height and lordosis. Cage was then selected, packed with autograft and allograft and placed under lateral imaging. Once in good position it was tested and stable. Motors run before and after cage placement were stable. The wound was irrigated, and autograft placed lateral to the cage anteriorly for fusion. Nu Mine pin was then removed from C7 and C6 and bone wax placed in their void. A separate, non-integrated plate was then selected and sized under lateral image. The plate was then placed with screws. Fixed screws drilled into C7 b/l and screws placed. Then into C6 and secured. All locking mechanisms were set, and all screws had good purchase. Final AP and lateral images taken confirmed good placement of hardware and good reduction and caodaism of height. The wound was then irrigated copiously with NSS. Surgicel placed deep in the wound. Meticulous hemostasis had been achieved. Layered closure then performed with 3-0 Vicryl in the platysma and subQ tissue. 4-0 Strata fix in the subcuticular tissue. The wound was then cleaned, and dried and skin glue placed. Once glue dried on Opifoam was placed. The patient was then transferred back to their hospital bed a-traumatically. They were placed in a soft collar. They were then awakened by the department of anesthesia having tolerated the procedure well without complications.
[2024-01-29] MEDS: LABETALOL SYRINGE 5 MG/ML (4 ML SYR) IVP ONE (09:58)
[2024-01-29] MEDS: ENALAPRILAT 1.25 MG/ML 1 ML VIAL IVP ONE (10:20)
--- NOTE | 2024-01-29 10:27 | FL ---
EXAMINATION TYPE: FL guidance operating room DATE OF EXAM: 01/29/2024 HISTORY: Fluoroscopy time Total dose area product (DAP) in uGy*m?, mGy*cm? (or similar): 0.2844 IMPRESSION: 1. Fluoroscopy time.
[2024-01-29] MEDS: droPERidol 5 MG/2 ML VIAL IVP ONE (10:48)
[2024-01-29] MEDS: ONDANSETRON 4 MG/2 ML VIAL IVP ONE (10:48)
--- NOTE | 2024-01-29 14:25 | CT ---
EXAMINATION TYPE: CT cervical spine wo con CT DLP: 418.8 mGycm, Automated exposure control for dose reduction was used. DATE OF EXAM: 01/29/2024 2:06 PM COMPARISON: 01/29/2024. CLINICAL INDICATION:Female, 48 years old with history of s/p C6-C7 ACDF; [facility], S/P C6-C7 ACDF TECHNIQUE: Axial CT images from the skull base to the inferior aspect of T2 we obtained without intra venous contrast. Coronal and sagittal reformatted images were also reviewed. Contrast used: mL of , (if blank None) Oral contrast used: (if blank None) FINDINGS: Fracture: None. Osseous structures: Post fixation changes to C6 and C7 with hardware in place. Mild degeneration with osteophyte formation and facet uncovertebral joint arthropathy. 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 Vertebral alignment: Alignment within normal limits. Spinal canal/Neural Foramina: No evidence of significant spinal canal narrowing. No evidence for sign ificant neural foraminal stenosis. Neck soft tissues: Subcutaneous gas in the anterior neck compatible with recent surgery. Drainage cat heter tubing in the surgical bed. Other: The airway is patent. The lung apices are clear. Mild mucosal thickening of the maxillary sinuses. IMPRESSION: 1. Postsurgical changes, No evidence of cervical spine fracture. No evidence for acute postop complic ation. 2. Mild multilevel degenerative disc disease.
--- NOTE | 2024-01-29 15:40 | P.HPIM ---
History of Present Illness H&P Date: 01/29/24 Past Medical History Past Medical History: Osteoarthritis (OA) Additional Past Medical History / Comment(s): HX MISSED AB (3 YRS AGO), GERD WHILE ., History of Any Multi-Drug Resistant Organisms: None Reported Past Surgical History: Section, Hernia Repair Additional Past Surgical History / Comment(s): D&C X2, COLONOSCOPY Past Anesthesia/Blood Transfusion Reactions: No Reported Reaction Additional Past Anesthesia/Blood Transfusion Reaction / Comment(s): HX OF BLOOD TRANSFUSION - NO REACTION Past Psychological History: No Psychological Hx Reported Smoking Status: Never smoker Past Alcohol Use History: None Reported Past Drug Use History: None Reported - Past Family History Father Family Medical History: Cancer Mother Family Medical History: Cancer, Deep Vein Thrombosis (DVT) Medications and Allergies Home Medications Medication Instructions Recorded Confirmed Type Acetaminophen [Tylenol Extra 1,000 mg PO Q8H PRN 01/24/24 01/24/24 History Strength] Allergies Allergy/AdvReac Type Severity Reaction Status Date / Time latex Allergy Rash/Hives Verified 01/29/24 06:21 Penicillins Allergy Swelling Verified 01/29/24 06:21 Physical Exam Vitals: Vital Signs Temp Pulse Pulse Resp BP BP Pulse Ox 01/29/24 12:33 99.5 F 90 17 143/82 98 01/29/24 11:54 99.5 F 88 18 143/82 99 01/29/24 11:45 90 16 145/59 100 01/29/24 11:15 88 16 155/68 93 L 01/29/24 11:00 89 16 176/74 100 01/29/24 10:45 85 16 164/74 98 01/29/24 10:30 90 16 172/79 99 01/29/24 10:15 78 16 178/86 100 01/29/24 10:00 81 16 182/91 99 01/29/24 09:45 89 16 182/91 98 01/29/24 09:30 72 16 208/105 100 01/29/24 09:17 97 F L 80 14 195/98 100 01/29/24 06:33 98.9 F 74 16 168/102 100 Intake and Output 01/29/24 01/29/24 01/29/24 06:59 14:59 22:59 Intake Total 300 900 Output Total 20 Balance 300 880 Intake: IV 300 900 Output: Estimated Blood Loss 20 Other: # Voids 1 Weight 85.7 kg 85.7 kg Thrombosis Risk Factor Assmnt - Choose All That Apply Any of the Below Risk Factors Present?: Yes Each Factor Represents 1 point: Age 41-60 years, Obesity (BMI >25) Each Risk Factor Represents 2 Points: Major surgery Each Risk Factor Represents 3 Points: Family history of DVT/PE Thrombosis Risk Factor Assessment Total Risk Factor Score: 7 Thrombosis Risk Factor Assessment Level: High Risk
--- NOTE | 2024-01-29 15:41 | P.CONS ---
History of Present Illness - Reason for Consult Consult date: 01/29/24 Medical Management Requesting physician: Jatinder Cox - History of Present Illness History of Presenting Illness: Patient is a 48-year-old female with a past medical history of GERD. She is currently admitted under orthospine surgery team and underwent cervical arthrodesis with biomechanical cage placement. We have been consulted for medical management throughout hospitalization. Patient was seen and fully evaluated in room 451. Soft c-collar in place. CARLOS drain in place. Patient currently reports controlled postoperative pain but reports sore throat and significant postoperative nausea. She denies experiencing any chest pain, palpitations, or shortness of breath. Patient able to swallow and clear secretions independently and denies any vomiting. Review of systems: Pertinent positives and negatives as discussed in HPI, a complete review of systems was performed and all other systems are negative. Physical exam: Vital signs reviewed and stable. General: Nontoxic, no distress and appears stated age. Derm: Skin warm and dry, normal coloration for ethnicity. Head: Atraumatic, normocephalic and symmetric. Soft c-collar in place. CARLOS drain in place. Eyes: EOMs intact, no lid lag, and anicteric sclera Mouth: no lip lesions, mucus membranes moist Cardiovascular: regular rate and rhythm with normal S1S2, no murmur, positive posterior tibial pulses bilaterally, and cap refill < 2 seconds. Lungs: Respirations even, regular, and unlabored on room air. Lungs CTA bilaterally, no rhonchi, no rales, no wheezing, and no accessory muscle usage. Abdominal: soft, nontender to palpation, no guarding, no appreciable organomegaly Ext: ROM intact. No gross muscle atrophy, no edema, no contractures Neuro: Speech clear, face symmetrical and CN II-XII grossly intact with no noted focal neuro deficits Psych: Alert and oriented to person, place, time, and situation. Appropriate and pleasant affect. Assessment and Plan of Care: Uncontrolled postoperative nausea -Order placed for Compazine 10 mg IVP every 6 hours in addition to Zofran 4 mg IVP every 6 hours. -Order also placed for phenol throat spray for patient's complaint of sore throat. Status post cervical arthrodesis with biomechanical cage placement -Management per primary admitting orthospine surgery team including DVT prophylaxis, pain management, wound/dressing/drain management, and discharge plan. -Continue neurochecks. -Continue symptomatic care and pain management. -Currently DVT prophylaxis with SCDs and MATTHEW hose. Vital signs reviewed and stable. Blood pressure 143/82, heart rate 98, respiratory rate 17, temp 99.5 F, and SpO2 of 98% on 2 L. Thank you for allowing us to participate in the care of this pleasant patient. Do not hesitate to contact us with questions. Someone can be reached from the [facility] hospitalist group all hours of the day at [phone] or via [employer]. Patient was seen independently by Nurse Practitioner. This document was prepared using [employer] dictation software. Please allow for errors in electrician supervisor substation while rare they do occur. Past Medical History Past Medical History: Osteoarthritis (OA) Additional Past Medical History / Comment(s): HX MISSED AB (3 YRS AGO), GERD WHILE ., History of Any Multi-Drug Resistant Organisms: None Reported Past Surgical History: Section, Hernia Repair Additional Past Surgical History / Comment(s): D&C X2, COLONOSCOPY Past Anesthesia/Blood Transfusion Reactions: No Reported Reaction Additional Past Anesthesia/Blood Transfusion Reaction / Comm: HX OF BLOOD TRANSFUSION - NO REACTION Past Psychological History: No Psychological Hx Reported Smoking Status: Never smoker Past Alcohol Use History: None Reported Past Drug Use History: None Reported - Past Family History Father Family Medical History: Cancer Mother Family Medical History: Cancer, Deep Vein Thrombosis (DVT) Medications and Allergies Home Medications Medication Instructions Recorded Confirmed Type Acetaminophen [Tylenol Extra 1,000 mg PO Q8H PRN 01/24/24 01/24/24 History Strength] Allergies Allergy/AdvReac Type Severity Reaction Status Date / Time latex Allergy Rash/Hives Verified 01/29/24 06:21 Penicillins Allergy Swelling Verified 01/29/24 06:21 Physical Exam Vitals: Vital Signs Temp Pulse Pulse Resp BP BP Pulse Ox 01/29/24 12:33 99.5 F 90 17 143/82 98 01/29/24 11:54 99.5 F 88 18 143/82 99 01/29/24 11:45 90 16 145/59 100 01/29/24 11:15 88 16 155/68 93 L 01/29/24 11:00 89 16 176/74 100 01/29/24 10:45 85 16 164/74 98 01/29/24 10:30 90 16 172/79 99 01/29/24 10:15 78 16 178/86 100 01/29/24 10:00 81 16 182/91 99 01/29/24 09:45 89 16 182/91 98 01/29/24 09:30 72 16 208/105 100 01/29/24 09:17 97 F L 80 14 195/98 100 01/29/24 06:33 98.9 F 74 16 168/102 100 Intake and Output 01/29/24 01/29/24 01/29/24 06:59 14:59 22:59 Intake Total 300 900 Output Total 20 Balance 300 880 Intake: IV 300 900 Output: Estimated Blood Loss 20 Other: # Voids 1 Weight 85.7 kg 85.7 kg
[2024-01-29] MEDS: PROCHLORPERAZINE INJ 10 MG/2 ML VIAL IVP PRN (15:58)
[2024-01-29] MEDS: Phenol 1.4% Sore Throat Spray Bottle MUCOUS MEM PRN (19:27)
[2024-01-29] MEDS: HYDROmorphone 1 MG/ML 1 ML SYRINGE IVP PRN (19:28)
[2024-01-30 07:48] VITALS: BP 160/95; PULSE 95; RESP 17; TEMP 98.4
[2024-01-30] MEDS: SENNOSIDES-DOCUSATE SODIUM 1 EACH TAB PO SCH (08:05)
[2024-01-30 09:14] LABS: Basophils % (A) 0 %; Eosinophils % (A) 0 %; HCT 38.5 % (34.0-46.0); HGB 11.9 gm/dL (11.4-16.0); Lymphocytes # (A) 1.8 k/uL (1.0-4.8); Lymphocytes % (A) 14 %; MCH 28.7 pg (25.0-35.0); MCHC 30.9 g/dL (31.0-37.0); Mean Platelet Volume 8.2; Monocytes # (A) 0.8 k/uL (0-1.0); Monocytes % (A) 7 %; Neutrophils # (A) 9.5 k/uL (1.3-7.7); Neutrophils % (A) 77 %; Platelet Count 268 k/uL (150-450); RBC 4.14 m/uL (3.80-5.40); RDW 12.9 % (11.5-15.5); WBC 12.4 k/uL (3.8-10.6)
[2024-01-30 09:36] LABS: African American GFR (CKD) >90 (>60 ml/min/1.73 sqM); Anion Gap 12 mmol/L; Blood Urea Nitrogen 15 mg/dL (7-17); Calcium 9.3 mg/dL (8.4-10.2); Carbon Dioxide 26 mmol/L (22-30); Chloride 100 mmol/L (98-107); Glucose 117 mg/dL (74-99); Non-African American GFR(CKD) >90 (>60 ml/min/1.73 sqM); Potassium 3.9 mmol/L (3.5-5.1); Sodium 138 mmol/L (137-145)
--- NOTE | 2024-01-30 09:36 | P.PN ---
Subjective Progress Note Date: 01/30/24 Principal diagnosis: 1. C6-7 herniated nucleus pulposus 2. Left upper extremity weakness 3. Neck pain Patient seen and examined this morning. Patient is sitting upright in bed. Patient reports that her pain is managed on current regimen. Patient does report that the pain in the left upper extremity has really resolved since the procedure. Surgical incision to the anterior cervical spine is well approximated with glue intact. CARLOS drain has been removed and new surgical dressing applied. Soft cervical collar is at bedside. Patient does report that she is comfortable with going home today. No acute concerns. Objective - Vital Signs Vital signs: Vital Signs Temp 98.4 F 01/30/24 07:47 Pulse 95 01/30/24 07:47 Resp 17 01/30/24 07:47 BP 160/95 01/30/24 07:47 Pulse Ox 92 L 01/30/24 07:47 FiO2 Intake & Output 01/29/24 01/30/24 01/30/24 18:59 06:59 18:59 Intake Total 900 Output Total 20 5 Balance 880 -5 Weight 85.7 kg Intake: IV 900 Output: Drainage 5 Right Anterior Neck 5 Estimated Blood Loss 20 Other: Voiding Method Toilet # Voids 1 4 - Exam Inspection: Surgical incision to the anterior cervical spine, edges are well approximated with glue intact. CARLOS drain has been removed and new surgical dressing applied. Sensation: Sensation is equal, symmetric, bilaterally intact throughout the upper and lower extremities Palpation: Nontender to palpation throughout bilateral upper and lower extremities and throughout spine exam Range of motion: Patient does have full range of motion bilateral upper and lower extremities on exam. Patient does have limited range of motion of the cervical spine due pain and stiffness secondary to surgical procedure Motor: 4/5 in all major motor groups in the bilateral upper and 5/5 lower extremities Special tests: Negative Homans bilaterally. Negative Maureen bilaterally. Negative clonus bilaterally. Neurovascular: Radial pulse intact, 2+ bilaterally. Cap refill under 3 seconds in digits upper extremities. - Labs CBC & Chem 7: 01/30/24 08:24 Labs: Abnormal Lab Results - Last 24 Hours (Table) 01/30/24 Range/Units 08:24 WBC 12.4 H (3.8-10.6) k/uL MCHC 30.9 L (31.0-37.0) g/dL Neutrophils # 9.5 H (1.3-7.7) k/uL Assessment and Plan Assessment: Postop day 1: C6-C7 ACDF 1. C6-7 herniated nucleus pulposus 2. Left upper extremity weakness 3. Neck pain Plan: -Appreciate senior product consultant and team management. -Activity: Ambulate QID, OOB all meals, up and about, limit lifting bending twisting to less than 5 lbs. Use walker or cane if needed for stability. -Daily PT/OT, increase ambulation strength and balance. -Soft cervical collar when up and about, not needed in bed or chair -Patient request a prescription for bedside commode liners and for care at home with chores. Prescription has been placed in chart for her auto claims case management rn. -Pain control: Adequate at this time -Meds: reviewed -GI ppx: senna, Miralax -DVT PPX: OK to restart Heparin tonight -Hygiene: Shower today. Maintain dressing clean and dry. -Encourage IS 10x/hr -Dispo: Anticipate discharge home later today *I reviewed and discussed this case with my attending Dr. Cox, whom has reviewed this chart and films and is in agreement with assessment and plan of care as outlined above. I have personally seen and examined the patient, performed the documentation and the assessment and plan as written. Number of minutes spent on the visit: 20m.
--- NOTE | 2024-01-30 09:39 | P.DS ---
Providers Date of admission: 01/29/24 Expected date of discharge: 01/30/24 Attending physician: Jatinder Cox DO Consults: 01/29/24 09:19 Consult Physician Routine Consulting Provider: Olga Matthews Consult Reason/Comments: Medical Management Do you want consulting provider notified?: Yes Primary care physician: Sumit Parkinson MD Hospital Course: Hospital Course: The patient was evaluated preoperatively and found to have the diagnosis of cervical spondylosis. They underwent appropriate preoperative care and were willing to undergo the intended procedure. They underwent a successful C6-C7 ACDF, were recovered appropriately and sent to the floor. While on the floor they worked with physical therapy, occupational therapy and nursing to enhance their recovery experience. Their pain was well controlled through their stay and they were started on appropriate medications, DVT ppx modalities, activity and dietary needs. Daily labs were monitored closely, and transfusions were only used when necessary. Medicine as well as other consulting services have made their input and have helped with our team approach and multidisciplinary care. PT milestones have been met and passed and they have made the recommendation of Home for this patient and treating providers agree with this care path. The patient will be discharged home with appropriate medications, instructions and follow-up information and in stable condition. Patient Condition at Discharge: Good Plan - Discharge Summary Discharge Rx Participant: Yes New Discharge Prescriptions: New Sulfamethox-Tmp 800-160Mg [Bactrim DS 800-160 mg] 1 tab PO Q12HR #10 tab Cyclobenzaprine [Flexeril] 5 mg PO TID PRN #30 tablet PRN Reason: Muscle Spasm HYDROcodone/APAP 7.5-325MG [[place] 7.5] 1 each PO Q4-6H PRN #42 tab PRN Reason: Pain Sennosides/Docusate Sodium [Senna Plus 8.6-50 mg Tablet] 1 each PO DAILY PRN #20 tablet PRN Reason: Constipation No Action Acetaminophen [Tylenol Extra Strength] 1,000 mg PO Q8H PRN PRN Reason: Pain Discharge Medication List Acetaminophen [Tylenol Extra Strength] 1,000 mg PO Q8H PRN 01/24/24 [History] Cyclobenzaprine [Flexeril] 5 mg PO TID PRN #30 tablet 01/30/24 [Rx] HYDROcodone/APAP 7.5-325MG [[place] 7.5] 1 each PO Q4-6H PRN #42 tab 01/30/24 [Rx] Sennosides/Docusate Sodium [Senna Plus 8.6-50 mg Tablet] 1 each PO DAILY PRN #20 tablet 01/30/24 [Rx] Sulfamethox-Tmp 800-160Mg [Bactrim DS 800-160 mg] 1 tab PO Q12HR #10 tab 01/30/24 [Rx] Follow up Appointment(s)/Referral(s): Sumit Parkinson MD [Primary Care Provider] - 1 Week Jatinder Cox DO [Doctor of Osteopathic Medicine] - 2 Weeks Patient Instructions/Handouts: *Surgery [facility] - Scopalamine Patch Instructions Activity/Diet/Wound Care/Special Instructions: Spine Discharge and Recovery Instructions Date of Surgery: 01/29/2024 Diagnosis: Cervical spondylosis with stenosis Procedure: C6-C7 ACDF Medications: See medication list All medication refills should be obtained through your primary care doctor or your clinic spine surgeon. Please discuss prescription refills at your follow up appointment. Do not call the hospital for medication refills. Activity: Encourage ambulation with assist of walker, Up and about 6-8x daily PT/OT daily work on balance, strength and mobility Up in chair with all meals Shower daily Brace: Use brace when up and about, do not wear in bed or shower Dressing: Leave your dressing in place for a total of 3 days post operatively. Then you may remove your dressing and leave open to air. Keep the area clean and if not able to keep area clean, then cover with sterile gauze and tape. Showering: You may shower 3 days after your procedure allowing soap and water to run over incision. Do not scrub. Do not soak. Blot dry. Follow up: Please confirm a follow up appointment with your surgeon 2 weeks post operatively. Please make an appointment to follow up with your PCP in 1-2 weeks after surgery for evaluation 3 phase, 3-week plan POST OP WEEKS 1-3 1. Lifting/carrying/pushing/pulling limited to less than 5 pounds. 2. Do not sit for longer than 15 minutes at one time. Get up and walk around. Prolonged sitting is NOT advised. If you lay down, see if you can tolerate laying down on you front (belly side) 3. Walk for periods of 15 minutes = 1 mile but no longer; do it multiple times times each day. 4. Ice your low back after activity. POST OP WEEKS 3-6 1. Lifting limited to less than 20 pounds. 2. Do not sit for longer than 30 minutes at a time. Frequently change positions. Use a sit-to stand workstation or take frequent breaks from sitting if you have returned to work. 3. Walk for 30 minutes each day. If possible, do these three or more times a day POST OP WEEKS 6+ At your 6-week appointment we will give you a physical therapy referral to focus on a core stabilization and strengthening program. You should also work on leg & buttock strengthening, hamstring & quadriceps stretching, and continue a low impact aerobic activity program such as swimming, walking, or riding a stationary bicycle. During the initial 6 weeks after your surgery, you are at the highest risk of re-injuring your spine. You should generally avoid BLTs (bending, lifting and twisting combination motions) and follow the above guidelines to reduce the chance of reinjury. You can anticipate post op appointments in our office at approximately 3 weeks and 6 weeks after your surgery. INCISION CARE: If your incision is not draining you do NOT need to cover it with a dressing. Keep your incision clean, dry and intact. In most cases, we apply skin glue, alvin or sutures to the incision at the time of surgery. This will be like a crust or have the appearance of a scab and will fall off in time on its own. The stitches or alvin need to be removed at 3 weeks post op appointment. You may begin to shower 3 days after surgery (this allows the glue to king well). However, please avoid scrubbing the incision site or peeling off any of the skin glue. This will ensure optimal healing of your incision. Also, during this time avoid soaking the incision area in water - this includes swimming pools, hot tubs or baths. No ointments, lotions or oils on the incision until your surgeon allows. Leave alvin, sutures or glue in place. Neurological dysfunction that comes on suddenly can also be a sign of a stroke. Below some common symptoms of a stroke are listed: B - balance difficulty such as sudden onset walking or leaning to one side - NEW E - eye problem such as sudden double vision or trouble seeing on one side - NEW F - Facial weakness or numbness on one side - NEW A - Arm or leg weakness or numbness on one side - NEW S - Slurred speech or difficulty with word finding - NEW T - Time is BRAIN! Call 911 as soon as you recognize these symptoms Diet: Consume a regular diet rich in vegetables and lean protein such as chicken or fish. You should consume in a ratio of approximately 20% fats|40% carbohydrates|40%protein. Vegetables, sweet potatoes, brown rice or quinoa are examples of good carbohydrates. Chips, white bread, cookies and sweets/sugar are examples of bad carbohydrates. Limit your bad carbs, go wild with good carbs. "Life's Simple 7" Guidelines as per [place] [employer] These will help you reclaim your life after surgery and helpdesk manager in your recovery, keeping in mind your restrictions. (1) Get Active. Physical activity can help people lose weight, control high blood pressure and cholesterol, feel emotionally better, and sleep better. (2) Control Cholesterol. Avoid a diet high in saturated fat, trans fat, & cholesterol. Limit whole milk & cream, ice cream, butter, egg yolks, processed meats (like sausage and hot dogs), and fatty meats. Choose healthy foods that are low in saturated fat, trans fat and cholesterol which include: Fruits and vegetables, fiber rich grain products (like whole grain pasta and brown rice), lean meat such as chicken, fish, nuts, seeds, and legumes. (3) Eat Better. Eat small portions. Shop at the grocery with a list and do not stray from it. Tips for a healthy diet include: Limit sodium intake to less than 1500mg daily, avoid prepackaged, processed, and fast foods, choose a diet rich in fruits, vegetables, and whole grain, high fiber foods, and limit saturated & cholesterol in your diet. (4) Manage Blood Pressure. If you have high blood pressure, you should have a cuff at home so that you can check your blood pressure regularly. Be sure you have a good cuff. An arm one is generally better than a wrist one. Bring the cuff to a doctor's appointment to validate that the measurements that your cuff are taking are accurate. Take your blood pressure twice daily when you are sitting down and relaxing. Record the numbers in a log and bring this log with you to your doctors' appointments. (5) Lose Weight if your BMI is above 25. A healthy BMI is between 19-25. To calculate Your BMI, you may use a Standard BMI Calculator on the NIH BMI website: <www.nhlbi.nih.gov/guidelines/obesity/BMI/bmicalc.htm>. Weigh oneself daily. If you are overweight, set a goal to lose weight. A pound a week loss if needed is a good target. (6) Reduce Blood Sugar. Limit foods and liquids with "added sugars." (Added sugars include sucrose, fructose, glucose, maltose, dextrose, high fructose corn syrup, corn syrup, concentrated fruit juice and honey). (7) Stop Smoking. If you smoke, quitting smoking is one of the best things that you can do for your health. Smoking increases your risk of heart attack, stroke, and peripheral vascular disease, which is a build-up of plaque in your arteries. Please discard all the cigarettes and lighters in your house. Have a plan for what you will do when you have the urge to smoke. Direct and second- hand smoke shortens your life as well as the lives of your family, friends and others around you. For your health and the health of those around you, please consider quitting! Proper Bending Body Mechanics: Maintain a wide stance with one foot slightly in front of the other. Keep your back straight. Bend utilizing the strength in your hips and knees. Do not bend at the waist. Maintain the lifted object at your waist-level close to your body. Avoid lifting weight that causes immediately pain or pain anywhere in the body afterwards. Smoking/Nicotine If there was ever one thing that you could do to increase your overall health, decrease your risk of cardiovascular problems by about 39% the second you make the choice, it is to STOP SMOKING. Your body's most instant gratification is the second you stop smoking. We have all heard the studies, read the articles but it is true, smoking is extremely bad for your overall health, and moreover it is detrimental to your bone health. Nicotine, IN ANY FORM, kills bone cells, prevents your body from healing fractures, and significantly prolongs healing after surgery. In spine surgery specifically, it increases your risk of not healing your bones to create a fusion and increases your risk of having a revision surgery due to this up to 60%. I know it is hard. I know it feels impossible. But there are ways. Take control of your life. We are here to help you through it. And when you are ready, ask us and we can direct you to help if you desire. Use the START Plan to Quit Smoking (please visit the Helpguide.org website listed below for more information): S = Set a quit date. Choose a date within the next 2 weeks, so you have enough time to prepare without losing your motivation to quit. If you mainly smoke at work, quit on the weekend, so you have a few days to adjust to the change. T = Tell family, friends, and co-workers that you plan to quit. Let your friends and family in on your plan to quit smoking and tell them you need their support and encouragement to stop. Look for a quit arvind who wants to stop smoking as well. You can help each other get through the rough times. A = Anticipate and plan for the challenges you'll face while quitting. Most people who begin smoking again do so within the first 3 months. You can help yourself make it through by preparing ahead for common challenges, such as nicotine withdrawal and cigarette cravings. R = Remove cigarettes and other tobacco products from your home, car, and work. Throw away all your cigarettes (no emergency pack!), lighters, ashtrays, and matches. Wash your clothes and freshen up anything that smells like smoke. Shampoo your car, clean your drapes and carpet, and steam your furniture. T = Talk to your doctor about getting help to quit. Your doctor can prescribe medication to help with withdrawal and suggest other alternatives. If you can't see a doctor, you can get many products over the counter at your local pharmacy or grocery store, including the nicotine patch, nicotine lozenges, and nicotine gum. Resources for Quitting Smoking: <https://www.[facility].gov/documents/[facility]/Quit_Tobacco_Resources_for_patients_313480_7.pdf> Supplementation: Take recommended dosages of Vitamin D and Calcium to help fortify your bones and help them to heal. See your health maintenance packet for dosages and recommended levels. DVT/VTE prophylaxis: You will be given compression stockings from the hospital. Wear these daily for the first two weeks after surgery. You may take them off at night. You may be prescribed a medication to help thin your blood. Take this as directed. If you are not prescribed this medication, early and frequent ambulation has been shown to be the best prophylaxis to deep vein thrombosis and sequelae related to this event. Discharge Disposition: HOME SELF-CARE
--- NOTE | 2024-01-30 10:26 | P.PN ---
Subjective Progress Note Date: 01/30/24 Hospital course: Patient is a 48-year-old female with a past medical history of GERD. She is currently admitted under orthospine surgery team and underwent cervical arthrodesis with biomechanical cage placement. We have been consulted for medical management throughout hospitalization. Patient was seen and fully evaluated in room 451 again this morning. Soft c- collar in place. CARLOS drain was just removed by surgery team. Dressing in place, clean, dry, and intact. Patient reports significant improvement of postoperative nausea after receiving Compazine as previously ordered. She also reports that her throat is feeling better since initiation of phenol spray. Patient currently reports only mild postoperative pain and denies having any other questions, needs, concerns or complaints at this time. Physical exam: Vital signs reviewed and stable. General: Nontoxic, no distress and appears stated age. Derm: Skin warm and dry, normal coloration for ethnicity. Head: Atraumatic, normocephalic and symmetric. Soft c-collar in place. CARLOS drain in place. Eyes: EOMs intact, no lid lag, and anicteric sclera Mouth: no lip lesions, mucus membranes moist Cardiovascular: regular rate and rhythm with normal S1S2, no murmur, positive posterior tibial pulses bilaterally, and cap refill < 2 seconds. Lungs: Respirations even, regular, and unlabored on room air. Lungs CTA bilaterally, no rhonchi, no rales, no wheezing, and no accessory muscle usage. Abdominal: soft, nontender to palpation, no guarding, no appreciable organomegaly Ext: ROM intact. No gross muscle atrophy, no edema, no contractures Neuro: Speech clear, face symmetrical and CN II-XII grossly intact with no noted focal neuro deficits Psych: Alert and oriented to person, place, time, and situation. Appropriate and pleasant affect. Assessment and Plan of Care: Hypomagnesemia -Magnesium slightly low at 1.7. Orders placed for Mag-Ox 400 mg p.o. x 1 dose. Leukocytosis -Leukocytosis with WBC count of 12.4. This is reactive and expected finding secondary to surgery. No signs of infection and no need for further intervention. Uncontrolled postoperative nausea, resolved -Continue Compazine 10 mg IVP every 6 hours as needed for nausea and vomiting. Sore throat, postextubation -Patient has no difficulties with dysphagia or clearing secretions. She is tolerating oral intake well and has no hemoptysis. Continue phenol throat spray for patient's complaint of sore throat. Status post cervical arthrodesis with biomechanical cage placement -Management per primary admitting orthospine surgery team including DVT prophylaxis, pain management, wound/dressing/drain management, and discharge plan. -Continue neurochecks. -Continue symptomatic care and pain management. -Currently DVT prophylaxis with SCDs and MATTHEW sevilla. Data reviewed: Vital signs reviewed and stable. Blood pressure elevated this morning at 160/95, heart rate 95, respiratory rate 17, temp 98.4 F, and SpO2 of 92% on room air. Morning labs reviewed. CBC showing leukocytosis with WBC count of 12.4 and stable hemoglobin of 11.9. BMP unremarkable. Blood glucose 117. Magnesium was slightly low at 1.7 and orders placed for Mag-Ox 400 mg p.o. x 1 dose. Patient cleared from medical perspective for discharge once cleared by primary admitting orthospine surgery team. Thank you for allowing us to participate in the care of this pleasant patient. Do not hesitate to contact us with questions. Someone can be reached from the [facility] hospitalist group all hours of the day at [phone] or via [employer]. Patient was seen independently by Nurse Practitioner. This document was prepared using [employer] dictation software. Please allow for errors in fitness worker while rare they do occur. Objective - Vital Signs Vital signs: Vital Signs Temp 98.4 F 01/30/24 07:47 Pulse 95 01/30/24 07:47 Resp 17 01/30/24 07:47 BP 160/95 01/30/24 07:47 Pulse Ox 92 L 01/30/24 07:47 FiO2 Intake & Output 01/29/24 01/30/24 01/30/24 18:59 06:59 18:59 Intake Total 900 Output Total 20 5 Balance 880 -5 Weight 85.7 kg Intake: IV 900 Output: Drainage 5 Right Anterior Neck 5 Estimated Blood Loss 20 Other: Voiding Method Toilet # Voids 1 4 - Labs CBC & Chem 7: 01/30/24 08:24 01/30/24 08:24
[2024-01-30] MEDS: MAGNESIUM OXIDE 400 MG TAB PO STA (10:32)
== END 2024-01-30 15:22 | disposition home or self-care (01) ==
LOC: OR 05:47 → 4SSUR 09:03 → OR 01-30 15:22
PROVIDERS: ATTEND Orthopaedic Surgery
DX: M48.02 Spinal stenosis, cervical region (principal); M47.22 Other spondylosis with radiculopathy, cervical region; M50.123 Cervical disc disorder at C6-C7 level with radiculopathy; M50.121 Cervical disc disorder at C4-C5 level with radiculopathy; E66.9 Obesity, unspecified; K21.9 Gastro-esophageal reflux disease without esophagitis; F17.210 Nicotine dependence, cigarettes, uncomplicated; Z88.0 Allergy status to penicillin; Z91.040 Latex allergy status; Z79.899 Other long term (current) drug therapy
CPT/HCPCS: 94760; 97161; 81025; 80048; 83735; 85025; 72040; 72125; 22551; 20936; 22853; L0120; C1713; J0780; J1100; J0690; J2405; J3490; J1170 ×2; J1920

== ENCOUNTER → 2024-05-23 | Outpatient (CLI) | payer OTHER ==
--- NOTE | 2024-05-23 09:07 | US ---
EXAMINATION TYPE: US thyroid st tissue head/neck DATE OF EXAM: 05/23/2024 COMPARISON: NONE CLINICAL INDICATION: Female, 48 years old with history of L98.9 LESION OF NECK M79.89 MASSMOTHER SPEC IFIED; Swelling in neck since ACDF neck surgery in january GLAND SIZE: Right Lobe: 5.7 x 2.1 x 2.3 cm Overall Parenchyma: homogeneous Left Lobe: 5.6 x 1.9 x 2.0 cm Overall Parenchyma: homogeneous Isthmus Thickness: NA cm NODULES RIGHT: # of nodules measured on right: 0 LEFT: # of nodules measured on left: 2 1. 1.8 X 0.9 x 1.4 cm, upper medial, Prior size: No prior TIRADS Score: 3 TIRADS Category 3: Composition: Mixed cystic and solid (1 point). Echogenicity: Hypoechoic (2 points). Shape: Wider than tall (0 points). Margin: Smooth (0 points). Echogenic foci: None or large comet-tail artifacts (0 points) Recommendation: If >2.5cm: FNA; If >1.5cm: Follow up at 1,3,5 years 2. 1.1 X 0.6 x 0.8 cm, lower lateral, Prior size: No prior TIRADS Score: 7 TIRADS Category 5: Composition: Solid or almost completely solid (2 points). Echogenicity: Hypoechoic (2 points). Shape: Wider than tall (0 points). Margin: Smooth (0 points). Echogenic foci: Punctate echogenic foci (3 points) Recommendation: If >1cm: FNA; If >0.5cm: Follow annually for 5 years ISTHMUS: # of nodules measured in the isthmus: 0 Bilateral neck scanned. Right largest lymph node = 2.8 x 0.8 x 1.9 cm Left largest lymph node = 3.1 x 1.8 x 1.2 cm; cortex = 0.46 cm No other abnormalities noted within the anterolateral bilateral neck. IMPRESSION: Left thyroid nodule which meets criteria for FNA left thyroid nodule 2.
--- NOTE | 2024-05-23 09:17 | US ---
EXAMINATION TYPE: US mass soft tissue chest/back DATE OF EXAM: 05/23/2024 COMPARISON: NONE CLINICAL INDICATION: Female, 48 years old with history of M79.89 MASSMOTHER SPECIFIED; Swelling to ne ck and right upper chest since ACDF neck surgery in january and pain around clavicle TECHNIQUE: Right clavicular area and posterior neck scanned FINDINGS: No abnormalities seen surrounding right clavicle Heterogenous area seen at patients posterior neck AOC heterogenous tissue in the area of concern with masslike areas possibly edematous tissue measuring 5.1 x 2.2 x 4.7 cm vs 10 x 3 x 10 cm . No organiz ing fluid collection. IMPRESSION: Heterogenous area in the area of patient's concern. Consider CT imaging with IV contrast for further evaluation. No organizing fluid collection identified.
== END | disposition home or self-care (01) ==
LOC: RADUSWWP 07:11
PROVIDERS: ATTEND Student in an Organized Health Care Education/Training Program
DX: L98.9 Disorder of the skin and subcutaneous tissue, unspecified (principal); E04.1 Nontoxic single thyroid nodule
CPT/HCPCS: 76536

== ENCOUNTER → 2024-07-22 | Outpatient (CLI) | payer OTHER ==
--- NOTE | 2024-07-22 09:05 | CT ---
EXAMINATION TYPE: CT soft tissue neck wo/w con CT DLP: 1246 mGycm, Automated exposure control for dose reduction was used. DATE OF EXAM: 07/22/2024 8:25 AM COMPARISON: Thyroid ultrasound 05/23/2024.. CLINICAL INDICATION: Female, 48 years old with history of thyroid nodule; [facility], thyroid nodule TECHNIQUE: Standard enhanced CT of the neck. Axial sections with coronal and sagittal reformats were obtained. Contrast used:100 mL of Isovue 300 with IV Contrast, (None if empty) Oral contrast used: (None if empty) FINDINGS: Brain: Visualized portions are grossly unremarkable. Orbits: Unremarkable Sinuses: Grossly unremarkable. Spaces of the neck: Clear and symmetric. Musculoskeletal: No acute osseous pathology. Lymph nodes: Multiple nonenlarged lymph nodes are seen along both anterior chains of the neck. Vascular structures: Visualized major arteries are patent without evidence of aneurysm. Thoracic Inlet/airway: Airway is patent. The lung apices are clear. Soft tissues/Thyroid: Hypodense thyroid nodule measuring 5 mm correlating with thyroid ultrasound Other: none. IMPRESSION Left thyroid nodule as seen on prior thyroid ultrasound, no suspicious lymphadenopathy or masses. [facility], , 07/22/2024 9:02 AM
== END | disposition home or self-care (01) ==
LOC: RADCTMAIN 07:28
PROVIDERS: ATTEND Otolaryngology Otolaryngology/Facial Plastic Surgery
DX: E04.1 Nontoxic single thyroid nodule (principal)
CPT/HCPCS: 70492

== ENCOUNTER → 2025-03-24 | Outpatient (CLI) | payer OTHER ==
--- NOTE | 2025-03-25 16:04 | MR ---
INDICATION: Patient age:Female; 49 years old; Reason for study: M54.12, M54.2,M75.22; [facility]. COMPARISON: MR cervical spine 11/30/2023, CT cervical spine 01/29/2024, fluoroscopic images of the cerv ical spine 01/29/2024, CT soft tissue neck 07/22/2024, cervical spine radiograph 03/11/2025, 08/04/2024. TECHNIQUE: Multi planar, multi sequence imaging was performed of the cervical spine. No Gadolinium wa s given. FINDINGS: Alignment: The cervical vertebral bodies have preserved heights. Alignment is within normal limits gi jeremie patient positioning. Bones: Postsurgical changes from ACDF C6-C7 with intervertebral disc hardware. This creates susceptib ility artifact which limits evaluation. Remaining bone signal is within normal limits. Cord: The spinal cord is unremarkable with regards to their signal intensity and morphology. Discs: Multilevel disc desiccation is present. C2-C3: No significant disc pathology. The spinal canal is patent. No neural foraminal stenosis. C3-C4: No significant disc pathology. The spinal canal is patent. No neural foraminal stenosis. C4-C5: Broad-based disc bulge redemonstrated with mild effacement of the anterior thecal sac. No spin al cord contact. No significant central canal stenosis. No neural foraminal stenosis. C5-C6: Broad-based disc bulge with mild effacement of the anterior thecal sac in close approximation to the ventral spinal cord without cord signal change. Mild central canal stenosis. No neural foramin al stenosis. C6-C7: Postsurgical changes with disc bulge resulting in mild effacement of the anterior thecal sac. There is close approximation to the ventral spinal cord. Mild central canal stenosis. No neural jovan inal stenosis. C7-T1: No significant disc pathology. The spinal canal is patent. No neural foraminal stenosis. Other: None. IMPRESSION: Postsurgical changes from ACDF C6-C7. Mild multilevel degenerative disc disease as described above. [facility], , 03/25/2025 4:02 PM
== END | disposition home or self-care (01) ==
LOC: RADMRIMAIN 19:15
PROVIDERS: ATTEND Orthopaedic Surgery
DX: M50.123 Cervical disc disorder at C6-C7 level with radiculopathy (principal); M75.22 Bicipital tendinitis, left shoulder; Z98.1 Arthrodesis status
CPT/HCPCS: 72141